=== PATIENT | male | born 1995 | race Caucasian/White ===

== ENCOUNTER 2019-11-16 14:19 | Emergency (ER) | payer SELFPAY ==
[2019-11-16 14:32] VITALS: BP 152/84; PULSE 83; RESP 16; TEMP 36.9; O2SAT 94; BMI 35.7
--- NOTE | 2019-11-16 14:47 | XRR_ITS ---
PROCEDURE INFORMATION: Exam: XR Right Humerus Exam date and time: 11/16/2019 2:48 PM Age: 24 years old Clinical indication: Pain; Upper arm; Right TECHNIQUE: Imaging protocol: XR Right humerus Views: 2 or more views. COMPARISON: No relevant prior studies available. FINDINGS: Bones/joints: Normal. Soft tissues: Normal. XR/[place] [id number] IMPRESSION: No acute findings.
--- NOTE | 2019-11-16 14:47 | XRR_ITS ---
PROCEDURE INFORMATION: Exam: XR Right Shoulder Exam date and time: 11/16/2019 2:48 PM Age: 24 years old Clinical indication: Pain; Shoulder; Right TECHNIQUE: Imaging protocol: XR Right shoulder. Views: 2 or more views. COMPARISON: No relevant prior studies available. FINDINGS: Bones/joints: Negative for acute bony abnormality Soft tissues: Normal. XR/XR shoulder RT min 2V* [id number] IMPRESSION: No acute findings.
--- NOTE | 2019-11-16 14:47 | ED_ITS ---
HPI - Extremity Problem General: Chief complaint: Extremity Injury, Upper Stated complaint: r arm and shouler pain Time Seen by Provider: 11/16/19 14:25 History of Present Illness: HPI Narrative: 24-year-old male presents emergency room with complaint of right arm and shoulder pain. Patient admits to drinking heavily last night states he does drink regularly admits he probably drinks too much. This morning he has numbness in his right arm he denies any neck pain denies any trauma he has a little bit of numbness across the right upper chest. He denies left-sided chest pain denies any difficulty breathing or shortness of breath the numbness extends to the midline and down. However when directly tested he has normal sensation bilaterally. Associated symptoms: Deny chest pain, fever(s) or rash Review of Systems Const: Denies: fever(s), chills, body aches, change in appetite, fatigue or malaise ENMT: Denies: throat pain, ear or mastoid pain, nasal discharge or nasal congestion Card: Denies: chest pain, edema, dyspnea on exertion or orthopnea Resp: Denies: dyspnea, productive cough or non-productive cough GI: Denies: abdominal pain, nausea, vomiting, hematemesis, coffee ground emesis, diarrhea, constipation, bloating, hematochezia or melena : Denies: flank pain, dysuria, urinary frequency or urinary urgency Skin/Breast: Denies: rash or pruritus [facility] ED PFSH: Medical History (Updated 11/16/19 @ 16:18 by Curtis Tavares DO) No significant past medical history Surgical History (Updated 11/16/19 @ 16:18 by Curtis Tavares DO) No significant past surgical history Social History (Updated 11/16/19 @ 16:18 by Curtis Tavares DO) Smoking and tobacco status: current every day smoker cigarettes Alcohol intake: current Alcohol intake frequency: 3 or more drinks per day Physical Exam Const: COMMON NORMALS: no acute distress GENERAL APPEARANCE: cooperative and comfortable ORIENTATION/CONSCIOUSNESS: Yes awake, Yes oriented to person, Yes oriented to place and Yes oriented to time HENMT: COMMON NORMALS: normocephalic, atraumatic, hearing grossly normal bilaterally, external ears normal, EAC's normal, TM's normal bilaterally, Normal nasal mucous membranes and turbinates present, moist oral mucous membranes and oropharynx normal HEAD & SCALP: normocephalic and atraumatic NOSE: Normal nasal mucous membranes and turbinates present EXTERNAL EAR: Yes external ears normal EXTERNAL AUDITORY CANAL: EAC's normal TYMPANIC MEMBRANE: TM's normal bilaterally Eye: COMMON NORMALS: Equal, round and reactive pupils present, EOMs intact bilaterally, conjunctivae normal and no scleral icterus CONJUNCTIVA: Yes conjunctivae normal PUPIL: Yes Equal, round and reactive pupils present Neck/C-Spine: COMMON NORMALS: full ROM, no lymphadenopathy, supple and no JVD Lymph: LYMPHATIC: no lymphadenopathy noted and no lymphedema noted Resp: COMMON NORMALS: normal respiratory effort, No retractions, No use of accessory muscles and clear to auscultation bilaterally AUSCULTATION: clear to auscultation bilaterally Cardio: COMMON NORMALS: no JVD, regular rate, regular rhythm and No murmurs present (Cardio) RATE: regular rate RHYTHM: regular rhythm GI: COMMON NORMALS: Soft to palpation and No hepatosplenomegaly present AUSCULTATION: Yes normoactive bowel sounds PALPATION: Yes Soft to palpation, No Tenderness to palpation present (GI), No Guarding due to palpation present (GI) and Yes No hepatosplenomegaly present Extremity: COMMON NORMALS: normal to inspection, capillary refill normal, no clubbing, cyanosis or edema, no calf tenderness and no pedal edema Neuro: SENSORIUM/ORIENTATION: Yes oriented to person, Yes oriented to place and Yes oriented to time Skin: COMMON NORMALS: no rashes or lesions noted GENERAL SKIN EXAM: no rashes or lesions noted Course Vital Signs: Vital signs: Vital Signs Temperature 98.5 F 11/16/19 14:32 Pulse Rate 79 11/16/19 16:12 Respiratory Rate 18 11/16/19 16:12 Blood Pressure 152/84 11/16/19 14:32 Pulse Oximetry 94 11/16/19 16:12 MDM - Extremity (Nontraumatic) MDM Narrative: Medical decision making narrative: Discussed findings with the patient. He has no evidence of stroke at this point is neurologic symptoms essentially normal Test him he has normal sensation to sharp and dull touch in the upper extremities and across bilaterally in the chest wall. Some of this may be related to his heavy alcohol intake was getting a peripheral neuropathy does have some elevated liver enzymes his gait and manual dexterity are otherwise normal he has no other side will focal neurologic deficit we will go ahead and discharge him home him follow-up with primary care if this persists he may need to see neurology. I did advise him against continued heavy drinking also cautioned him on the use of Tylenol since he is elevated liver enzymes and drinks heavily. Return if has further problems. Lab Data: Labs: Lab Results 11/16/19 11/16/19 Range/Units 15:13 15:13 WBC 9.4 (4.0-10.0) 10^3/ uL RBC 5.33 H (4.1-5.3) 10^6/u L Hgb 16.6 (11.7-16.6) g/dL Hct 47.9 (42.0-52.0) % MCV 89.9 (80-94) fL MCH 31.1 (28.0-34.0) pg MCHC 34.7 (30.0-36.0) g/dL RDW 13.0 (12.1-15.1) % Plt Count 316 (130-400) 10^3/c mm MPV 9.7 (7.4-10.4) fL Neut % (Auto) 64.9 % Lymph % (Auto) 21.5 % Christian % (Auto) 7.9 % Eos % (Auto) 4.3 % Baso % (Auto) 1.0 % Neut # (Auto) 6.10 (1.8-7.7) 10^3/u L Lymph # (Auto) 2.0 (0.8-4.8) 10^3/u L Christian # (Auto) 0.7 (0.2-0.9) 10^3/u L Eos # (Auto) 0.4 (0.0-0.8) 10^3/u L Baso # (Auto) 0.1 (0.0-0.1) 10^3/u L Nucleated RBC % (a uto) 0 % Nucleated RBCs # 0.0 /100WBC Sodium 140 (136-145) mmol/L Potassium 3.8 (3.5-5.1) mmol/L Chloride 101 (98-107) mmol/L Carbon Dioxide 27 (22-29) mmol/L Anion Gap 15.8 (5-19) BUN 10 (6-20) mg/dL Creatinine 0.8 (0.7-1.2) mg/dL GFR Calculation 117.8 (90-130) mL/min Glucose 110 (65-115) mg/dL Calculated Osmolal ity 287 (285-295) mOsm/k g Calcium 10.2 (8.5-10.5) mg/dL Magnesium 2.0 (1.7-2.3) mg/dL Total Bilirubin 0.5 (0.15-1.2) mg/dL AST 47 H (0-40) U/L ALT 97 H (0-41) U/L Alkaline Phosphata se 100 (40-130) IU/L Total Protein 7.8 (6.6-8.7) g/dL Albumin 4.7 (3.5-5.2) g/dL Globulin 3.1 (1.3-4.6) g/dL Discharge Plan Discharge Patient Disposition: Home Clinical Impression: Neuropathy, Excessive drinking alcohol, Elevated liver enzymes Condition: Stable Prescriptions: No Action No Known Home Medications RF: 0 Discharge Orders: Discharge Order (Routine); Ordered 11/16/19 Ordered By: Curtis Tavares Discharge Diet: Usual diet Discharge Activity: Increase activity as tolerated Activity Restrictions/Additional Instructions: Avoid alcohol and Tylenol use. Follow-up with your primary care doctor if this persists you may need to see neurology. Avoid alcohol use. Discharge Date/Time: 11/16/19 16:13 Coding Level of Care Code ED [employer] for Quan Herrera NIH stroke score NIHSS Level Of Consciousness - 1a: 0 Level Of Consciousness Questions - 1b: Both Correct Level Of Consciousness Commands - 1c: Both Correct Best Gaze - 2: Normal Visual Lechuga - 3: No Visual Loss Facial Palsy - 4: Normal Motor Arm Right - 5: No Drift Motor Arm Left - 5: No Drift Motor Leg Right - 6: No Drift Motor Leg Left - 6: No Drift Limb Ataxia - 7: Absent Sensory - 8: Normal Best Language - 9: No Aphasia Dysarthia - 10: Normal Extinction And Inattention - 11: 0 Score Total Score: 0
--- NOTE | 2019-11-16 14:51 | ECG_ITS ---
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 Measurements Intervals [place] Rate: 67 P: 30 NH: 159 QRS: 26 QRSD: 105 T: 23 QT: 369 QTc: 392 Interpretive Statements SINUS RHYTHM Compared to ECG 06/14/2016 20:16:44 Sinus bradycardia no longer present Electronically Signed On 11-16-2019 18:12:21 CDT by Lynnette Simon M.D. [email or web address].[facility] Ropsmississippi baptist medical centerITOG, Inc.[facility].[employer]/store/OM/[id number]
--- NOTE | 2019-11-16 14:51 | XRR_ITS ---
PROCEDURE INFORMATION: Exam: XR Chest, 1 View Exam date and time: 11/16/2019 2:52 PM Age: 24 years old Clinical indication: Cough and dyspnea; Additional info: Dyspnea/cough TECHNIQUE: Imaging protocol: XR of the chest Views: 1 view. COMPARISON: CR Chest 2 views* [id number] 06/14/2016 8:24 PM FINDINGS: Lungs: Unremarkable. No consolidation. Pleural space: Unremarkable. No pleural effusion. No pneumothorax. Heart/Mediastinum: Unremarkable. No cardiomegaly. Bones/joints: Unremarkable. XR/XR chest 1V portable [id number] IMPRESSION: No acute findings.
[2019-11-16 15:22] LABS: Basophils # 0.1 10^3/uL (0.0-0.1); Eosinophils # 0.4 10^3/uL (0.0-0.8); Eosinophils % 4.3 %; Hematocrit 47.9 % (42.0-52.0); Hemoglobin 16.6 g/dL (11.7-16.6); Lymphocytes % 21.5 %; Mean Corpuscular HGB Conc 34.7 g/dL (30.0-36.0); Mean Corpuscular Hemoglobin 31.1 pg (28.0-34.0); Mean Corpuscular Volume 89.9 fL (80-94); Mean Platelet Volume 9.7 fL (7.4-10.4); Monocytes # 0.7 10^3/uL (0.2-0.9); Monocytes % 7.9 %; Neutrophils % 64.9 %; Nucleated Red Blood Cells % 0 %; Platelet Count 316 10^3/cmm (130-400); Red Blood Count 5.33 10^6/uL (4.1-5.3); White Blood Count 9.4 10^3/uL (4.0-10.0)
[2019-11-16 15:44] LABS: Alanine Aminotransferase 97 U/L (0-41); Albumin Level 4.7 g/dL (3.5-5.2); Alkaline Phosphatase 100 IU/L (40-130); Anion Gap 15.8 (5-19); Aspartate Amino Transferase 47 U/L (0-40); Blood Urea Nitrogen 10 mg/dL (6-20); Calcium 10.2 mg/dL (8.5-10.5); Carbon Dioxide 27 mmol/L (22-29); Chloride 101 mmol/L (98-107); Globulin 3.1 g/dL (1.3-4.6); Glomerular Filtration Rate 117.8 mL/min (90-130); Glucose 110 mg/dL (65-115); Osmolality Calculated 287 mOsm/kg (285-295); Potassium 3.8 mmol/L (3.5-5.1); Sodium 140 mmol/L (136-145); Total Bilirubin 0.5 mg/dL (0.15-1.2); Total Protein 7.8 g/dL (6.6-8.7)
[2019-11-16 16:12] VITALS: PULSE 79; RESP 18; O2SAT 94
--- NOTE | 2019-11-17 14:25 | DCPLANNER ---
manager personnel selection had message to speak with patient about getting established with a primary care physician. manager personnel selection called [phone], no voicemail box set up. Case manger unable to speak with patient at this time and unable to leave a voicemail, no voicemail box set up.
== END 2019-11-16 16:13 | disposition home or self-care (01) ==
PROVIDERS: Emergency Provider Family Medicine
DX: G62.9 Polyneuropathy, unspecified (principal); F10.10 Alcohol abuse, uncomplicated; R74.8 Abnormal levels of other serum enzymes; F17.210 Nicotine dependence, cigarettes, uncomplicated
CPT/HCPCS: 12345; 36415; 71045; 73030; 73060; 80053; 83735; 85025; 93005; 99282; 99283

== ENCOUNTER 2020-09-01 01:25 | Emergency (ER) | payer SELFPAY ==
[2020-09-01 01:29] VITALS: BP 141/83; PULSE 68; RESP 14; TEMP 36.7; O2SAT 98; BMI 32.4
--- NOTE | 2020-09-01 01:37 | CTR_ITS ---
PROCEDURE INFORMATION: Exam: CT Head Without Contrast Exam date and time: 09/01/2020 1:39 AM Age: 25 years old Clinical indication: Dizziness; Additional info: Dizzy TECHNIQUE: Imaging protocol: Computed tomography of the head without contrast. Radiation optimization: All CT scans at this facility use at least one of these dose optimization techniques: automated exposure control; mA and/or kV adjustment per patient size (includes targeted exams where dose is matched to clinical indication); or iterative reconstruction. COMPARISON: No relevant prior studies available. RADIATION DOSE METRICS: Total DLP (mGy-cm): 833.98 FINDINGS: Brain: No hemorrhage. No significant white matter disease. No edema. Cerebral ventricles: No hydrocephalus Paranasal sinuses: Visualized sinuses are unremarkable. No fluid levels. Mastoid air cells: No significant mastoid effusion. Bones/joints: No acute fracture. Soft tissues: Unremarkable. CT/CT head wo con* [id number] IMPRESSION: No acute intracranial abnormality. Radiation Dose CTDIVOL = (mGy): DLP = 833.98 (mGy-cm)
--- NOTE | 2020-09-01 01:38 | ECG_ITS ---
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 Measurements Intervals [place] Rate: 59 P: 48 [place]: 150 QRS: 63 QRSD: 105 T: 59 QT: 399 QTc: 396 Interpretive Statements SINUS BRADYCARDIA Compared to ECG 11/16/2019 15:29:34 Sinus rhythm no longer present Electronically Signed On 09-02-2020 18:54:39 CDT by Sven Brand M.D. [email or web address] Gamestem[facility] community hospitalGladitood/store/[id number]
--- NOTE | 2020-09-01 01:49 | W.ED.DIZZY ---
HPI - Dizziness General: Chief Complaint: Dizziness Stated Complaint: dizziness, tingling in face and spine Time Seen by Provider: 09/01/20 01:31 Source: patient Mode of arrival: ambulatory Limitations: no limitations History of Present Illness: HPI Narrative: 25-year-old male states that tonight he started having a slight headache and is feeling very anxious and started having paresthesias in his legs and arms. States that they just further increased his anxiety and felt nauseous. Denies any chest pain. Denies any fever. Denies any worsening improving factors. States symptoms have resolved slightly. Associated symptoms: Denies chest pain, chills, headache(s), nausea or vomiting Associated neuro symptoms: Reports numbness in extremities Review of Systems Const: Denies: fever(s), chills, body aches or change in appetite Eyes: Denies: blurry vision or eye discomfort ENMT: Reports: dental pain; Denies: throat pain Card: Denies: chest pain Resp: Denies: dyspnea GI: Denies: abdominal pain, nausea, vomiting or diarrhea : Denies: dysuria Musc: Denies: neck pain or back pain Skin/Breast: Denies: rash Neuro: Reports: numbness in extremities; Denies: headache(s) Psych: Denies: depression Shailesh/Lymph: Denies: easy bruising All/Imm: Denies: urticaria PFS ED PFSH: Medical History (Updated 09/01/20 @ 02:59 by Vickie Silva MD) No significant past medical history Surgical History (Updated 11/16/19 @ 16:18 by Curtis Tavares DO) No significant past surgical history Social History (Updated 11/16/19 @ 16:18 by Curtis Tavares DO) Smoking and tobacco status: current every day smoker cigarettes Alcohol intake: current Alcohol intake frequency: 3 or more drinks per day Physical Exam Const: COMMON NORMALS: no acute distress, patient oriented x3 and healthy appearing HENMT: COMMON NORMALS: normocephalic and atraumatic HEAD & SCALP: normocephalic and atraumatic OTHER: very poor dentition tenderness over right lower molar Eye: COMMON NORMALS: Equal, round and reactive pupils present and EOMs intact bilaterally PUPIL: Yes Equal, round and reactive pupils present Neck/C-Spine: COMMON NORMALS: full ROM and supple Chest: COMMONS NORMALS: normal inspection of the chest and normal palpation of entire chest wall Resp: COMMON NORMALS: normal respiratory effort, No retractions, No use of accessory muscles and clear to auscultation bilaterally AUSCULTATION: clear to auscultation bilaterally Cardio: COMMON NORMALS: regular rate, regular rhythm and No murmurs present (Cardio) RATE: regular rate RHYTHM: regular rhythm GI: COMMON NORMALS: Normal to inspection, nondistended, normoactive bowel sounds present, Soft to palpation, non-tender and no masses PALPATION: Yes Soft to palpation Extremity: COMMON NORMALS: normal to inspection and full ROM Neuro: COMMON NORMALS: patient oriented x3, moves all extremities and no focal motor deficits Psych: COMMON NORMALS: mental status grossly normal, Normal thought process present and cooperative THOUGHT PROCESS: Normal thought process present Skin: COMMON NORMALS: no rashes or lesions noted and no wounds GENERAL SKIN EXAM: no rashes or lesions noted Course Vital Signs: Vital signs: Vital Signs Temperature 98.0 F 09/01/20 01:29 Pulse Rate 62 09/01/20 02:52 Respiratory Rate 16 09/01/20 02:52 Blood Pressure 128/81 09/01/20 02:52 Pulse Oximetry 94 09/01/20 02:52 MDM - Dizziness MDM Narrative: Medical decision making narrative: Kam presents here with paresthesias likely from anxiety and methamphetamine abuse. Patient's blood work and head CT here are all normal. He has no signs of stroke. He feels improved after Ativan and is stable for discharge. He is to follow-up with PCP and return if worsening. Lab Data: Labs: Lab Results 09/01/20 09/01/20 09/01/20 Range/Units 01:45 01:45 02:10 WBC 9.8 (4.0-10.0) 10^3/ uL RBC 5.85 H (4.1-5.3) 10^6/u L Hgb 17.8 H (11.7-16.6) g/dL Hct 51.9 (42.0-52.0) % MCV 88.7 (80-94) fL MCH 30.4 (28.0-34.0) pg MCHC 34.3 (30.0-36.0) g/dL RDW 12.9 (12.1-15.1) % Plt Count 352 (130-400) 10^3/c mm MPV 9.7 (7.4-10.4) fL Neut % (Auto) 58.8 % Lymph % (Auto) 27.1 % Mcnairy % (Auto) 10.1 % Eos % (Auto) 2.4 % Baso % (Auto) 1.3 % Neut # (Auto) 5.75 (1.8-7.7) 10^3/u L Lymph # (Auto) 2.7 (0.8-4.8) 10^3/u L Mcnairy # (Auto) 1.0 H (0.2-0.9) 10^3/u L Eos # (Auto) 0.2 (0.0-0.8) 10^3/u L Baso # (Auto) 0.1 (0.0-0.1) 10^3/u L Nucleated RBC % (a uto) 0 % Nucleated RBCs # 0.0 /100WBC Sodium 135 L (136-145) mmol/L Potassium 4.0 (3.5-5.1) mmol/L Chloride 97 L (98-107) mmol/L Carbon Dioxide 24 (22-29) mmol/L Anion Gap 18.0 (5-19) BUN 13 (6-20) mg/dL Creatinine 0.7 (0.7-1.2) mg/dL GFR Calculation 136.3 H (90-130) mL/min Glucose 85 (65-115) mg/dL Calculated Osmolal ity 279 L (285-295) mOsm/k g Calcium 9.6 (8.5-10.5) mg/dL Total Bilirubin 1.0 (0.15-1.2) mg/dL AST 51 H (0-40) U/L ALT 84 H (0-41) U/L Alkaline Phosphata se 94 (40-130) IU/L Total Protein 7.8 (6.6-8.7) g/dL Albumin 4.8 (3.5-5.2) g/dL Globulin 3.0 (1.3-4.6) g/dL Urine Opiates Scre en Negative (Negative) ng/mL Ur Barbiturates Sc reen Negative (Negative) ng/mL Ur Phencyclidine S crn Negative (Negative) ng/mL Ur Amphetamines Sc reen Positive H (Negative) ng/mL U Benzodiazepines Scrn Negative (Negative) ng/mL Urine Cocaine Scre en Negative (Negative) ng/mL U Marijuana (THC) Screen Positive H (Negative) ng/mL Imaging Data^: CT Head: Attestation: I personally reviewed and interpreted this imaging study as follows: Radiologist's impression: [facility] [address] [place] [address] CT Scan Report Signed Patient: Kam Chatman Unit #: [id number] : 1995 Age/Sex: 25 / M ADM Date: 09/01/20 Loc: ER Room/Bed: Attending Dr: Ordering Provider/Ordering MD: Vickie Silva MD Date of Service: 09/01/20 Procedure(s): CT head wo con* [id number] Accession Number(s): [id number] Report Number: [id number] PROCEDURE INFORMATION: Exam: CT Head Without Contrast Exam date and time: 09/01/2020 1:39 AM Age: 25 years old Clinical indication: Dizziness; Additional info: Dizzy TECHNIQUE: Imaging protocol: Computed tomography of the head without contrast. Radiation optimization: All CT scans at this facility use at least one of these dose optimization techniques: automated exposure control; mA and/or kV adjustment per patient size (includes targeted exams where dose is matched to clinical indication); or iterative reconstruction. COMPARISON: No relevant prior studies available. RADIATION DOSE METRICS: Total DLP (mGy-cm): 833.98 FINDINGS: Brain: No hemorrhage. No significant white matter disease. No edema. Cerebral ventricles: No hydrocephalus Paranasal sinuses: Visualized sinuses are unremarkable. No fluid levels. Mastoid air cells: No significant mastoid effusion. Bones/joints: No acute fracture. Soft tissues: Unremarkable. CT/CT head wo con* [id number] IMPRESSION: No acute intracranial abnormality. EKG Data^: EKG 1: Attestation: I personally reviewed and interpreted this EKG as follows: EKG interpretation date: 09/01/20 EKG interpretation time: 02:09 Interpretation: sinus kiran hr [address] or t wave abnormalities qrs 105 qtc 397 Discharge Plan Discharge Patient Disposition: Home Clinical Impression: Paresthesia Condition: Stable Prescriptions: No Action No Known Home Medications RF: 0 Discharge Orders: Discharge ED (Routine); Ordered 09/01/20 Ordered By: Vickie Silva Discharge Diet: Advance as tolerated Discharge Activity: Resume usual activity Patient Instructions: Paresthesia (ED) Coding Level of Care Code ED [employer] for [employer]an Fwd Exam Comprehensive
[2020-09-01 01:52] LABS: Basophils # 0.1 10^3/uL (0.0-0.1); Basophils % 1.3 %; Eosinophils # 0.2 10^3/uL (0.0-0.8); Eosinophils % 2.4 %; Hematocrit 51.9 % (42.0-52.0); Hemoglobin 17.8 g/dL (11.7-16.6); Lymphocytes # 2.7 10^3/uL (0.8-4.8); Lymphocytes % 27.1 %; Mean Corpuscular HGB Conc 34.3 g/dL (30.0-36.0); Mean Corpuscular Hemoglobin 30.4 pg (28.0-34.0); Mean Corpuscular Volume 88.7 fL (80-94); Mean Platelet Volume 9.7 fL (7.4-10.4); Monocytes % 10.1 %; Neutrophils # 5.75 10^3/uL (1.8-7.7); Neutrophils % 58.8 %; Nucleated Red Blood Cells % 0 %; Platelet Count 352 10^3/cmm (130-400); Red Blood Count 5.85 10^6/uL (4.1-5.3); Red Cell Distribution Width 12.9 % (12.1-15.1); White Blood Count 9.8 10^3/uL (4.0-10.0)
[2020-09-01 02:08] LABS: Alanine Aminotransferase 84 U/L (0-41); Albumin Level 4.8 g/dL (3.5-5.2); Alkaline Phosphatase 94 IU/L (40-130); Aspartate Amino Transferase 51 U/L (0-40); Blood Urea Nitrogen 13 mg/dL (6-20); Calcium 9.6 mg/dL (8.5-10.5); Carbon Dioxide 24 mmol/L (22-29); Chloride 97 mmol/L (98-107); Glomerular Filtration Rate 136.3 mL/min (90-130); Glucose 85 mg/dL (65-115); Osmolality Calculated 279 mOsm/kg (285-295); Sodium 135 mmol/L (136-145); Total Protein 7.8 g/dL (6.6-8.7)
[2020-09-01] MEDS: LORazepam 2 mg/mL INJ 1 mL 1 MG IVP (02:12)
[2020-09-01 02:15] VITALS: BP 121/72; PULSE 64; RESP 18; O2SAT 96
[2020-09-01 02:31] LABS: Amphetamines Screen Urine Positive (Negative); Barbiturates Screen Urine Negative (Negative); Benzodiazepines Screen Urine Negative (Negative); Cocaine Screen Urine Negative (Negative); Opiate Screen Urine Negative (Negative); PCP Screen Urine Negative (Negative); THC Screen Urine Positive (Negative)
[2020-09-01 02:52] VITALS: BP 128/81; PULSE 62; RESP 16; O2SAT 94
[2020-09-01 03:19] VITALS: BP 125/78; PULSE 61; RESP 14; O2SAT 98
== END 2020-09-01 03:20 | disposition home or self-care (01) ==
PROVIDERS: Emergency Provider Emergency Medicine
DX: R20.2 Paresthesia of skin (principal); F17.210 Nicotine dependence, cigarettes, uncomplicated
CPT/HCPCS: 70450; 80053; 80306; 85025; 93005; 96374; 99283; J2060

== ENCOUNTER 2020-10-20 10:19 | Emergency (ER) | payer SELFPAY ==
[2020-10-20 10:49] VITALS: BP 117/66; PULSE 85; RESP 18; TEMP 37.4; O2SAT 94; BMI 29.0
[2020-10-20 11:12] VITALS: BP 120/66; PULSE 69; RESP 15; O2SAT 96
--- NOTE | 2020-10-20 11:24 | CTR_ITS ---
PROCEDURE INFORMATION: Exam: CT Abdomen And Pelvis With Contrast Exam date and time: 10/20/2020 11:24 AM Age: 25 years old Clinical indication: Other: Diarrhea; Abdominal pain; Localized; Lower; Additional info: Abd pain TECHNIQUE: Imaging protocol: Computed tomography of the abdomen and pelvis with contrast. Radiation optimization: All CT scans at this facility use at least one of these dose optimization techniques: automated exposure control; mA and/or kV adjustment per patient size (includes targeted exams where dose is matched to clinical indication); or iterative reconstruction. Contrast material: OMNI 300; Contrast volume: 95 ml; Contrast route: INTRAVENOUS (IV); COMPARISON: None RADIATION DOSE METRICS: Total DLP (mGy-cm): 1578.39 FINDINGS: Lungs: Poorly defined 14 by 10 by 12 mm and 14 by 13 by 9 mm nodular lesions of ground-glass attenuation in the right lower lobe. Recommend CT Chest at 3-6 months. Subsequent management should be based on the most suspicious nodule(s). (Reference: Kvng). Liver: Multiple poorly characterized nodular hypodense lesions in the periphery of the right hepatic lobe, which do not fulfill CT criteria for simple cysts. MRI can be performed for improved characterization if clinically indicated. Gallbladder and bile ducts: Unremarkable gallbladder. No biliary ductal dilatation. Pancreas: No pancreatic mass or ductal dilatation. Spleen: Spleen upper limits of normal size. Adrenal glands: Unremarkable adrenals. Kidneys and ureters: Normal renal morphology. No hydronephrosis. Stomach and bowel: Colonic wall thickening, in a pattern of colitis. Mild wall thickening in the nondistended stomach. Mild small bowel dilatation without a focal transition zone. Diverticula, without pericolonic inflammation. Appendix: No acute appendicitis. Intraperitoneal space: No significant free fluid. Vasculature: Normal caliber of the abdominal aorta. Lymph nodes: Subcentimeter lymph nodes. Urinary bladder: Wall thickening in the nondistended bladder. Reproductive: Unremarkable as visualized. Bones/joints: L5 spondylolysis. Schmorl's nodes, vertebral endplate irregularity, and marginal osteophytes. CT/CT abdomen pelvis w con* [id number] IMPRESSION: 1. Colonic wall thickening, in a pattern of colitis. 2. Multiple poorly characterized nodular hypodense lesions in the periphery of the right hepatic lobe, which do not fulfill CT criteria for simple cysts. 3. Poorly defined 14 by 10 by 12 mm and 14 by 13 by 9 mm nodular lesions of ground-glass attenuation in the right lower lobe. 4. Additional findings as described above. Radiation Dose CTDIVOL = (mGy): DLP = 1578.39 (mGy-cm)
--- NOTE | 2020-10-20 11:24 | ED_ITS ---
HPI - Abdominal Pain General: Chief Complaint: Abdominal Pain Stated Complaint: ABDOMEN PAIN Time Seen by Provider: 10/20/20 10:56 History of Present Illness: HPI narrative: 25-year-old male presents emergency room with complaints of lower abdominal pain intermittent has had some loose stools recently and one episode of vomiting he denies any fever no cough or shortness of breath sore throat no congestion no myalgias. Is not had like any episodes like this in the past. Denies any medication melena hematemesis coffee-ground emesis MD elicited complaint: abdominal pain Onset (ago): hour(s) Pain Consistency: constant Location: Suprapubic Severity: moderate Quality: cramping Radiation: none Migration to: no migration Exacerbating factors: nothing Relieving factors: nothing Associated Symptoms: Reports bloating and change in bowel habits; Denies anorexia, belching, change in stool character, chills, coffee ground emesis, constipation, GI cramping, diarrhea, dyspepsia, dysuria, excessive flatus, fever(s), heartburn, hematochezia, hematuria, hematemesis, fecal incontinence, loose stools, melena, nausea, poor appetite, syncope and vomiting Review of Systems Const: Denies: fever(s) or chills ENMT: Denies: throat pain, ear or mastoid pain, nasal discharge or nasal congestion Card: Denies: syncope Resp: Denies: dyspnea, productive cough or non-productive cough GI: Reports: bloating and change in bowel habits; Denies: nausea, vomiting, hematemesis, coffee ground emesis, heartburn, diarrhea, constipation, GI cramping, belching, excessive flatus, fecal incontinence, change in stool character, hematochezia or melena : Denies: dysuria or hematuria Skin/Breast: Denies: rash or pruritus PFSH ED PFSH: Medical History No significant past medical history Surgical History No significant past surgical history Social History Smoking and tobacco status: current every day smoker cigarettes Alcohol intake: current Alcohol intake frequency: 3 or more drinks per day Substance/Drug Use: current Substance/Drug use type: Marijuana Physical Exam Const: COMMON NORMALS: no acute distress GENERAL APPEARANCE: cooperative and comfortable ORIENTATION/CONSCIOUSNESS: Yes awake, Yes oriented to person, Yes oriented to place and Yes oriented to time HENMT: COMMON NORMALS: normocephalic, atraumatic, hearing grossly normal bilaterally, external ears normal, EAC's normal, TM's normal bilaterally, Normal nasal mucous membranes and turbinates present, moist oral mucous membranes and oropharynx normal HEAD & SCALP: normocephalic and atraumatic NOSE: Normal nasal mucous membranes and turbinates present EXTERNAL EAR: Yes external ears normal EXTERNAL AUDITORY CANAL: EAC's normal TYMPANIC MEMBRANE: TM's normal bilaterally Eye: COMMON NORMALS: Equal, round and reactive pupils present, EOMs intact bilaterally, conjunctivae normal and no scleral icterus CONJUNCTIVA: Yes conjunctivae normal PUPIL: Yes Equal, round and reactive pupils present Neck/C-Spine: COMMON NORMALS: full ROM, no lymphadenopathy, supple and no JVD Lymph: LYMPHATIC: no lymphadenopathy noted and no lymphedema noted Resp: COMMON NORMALS: normal respiratory effort, No retractions, No use of accessory muscles and clear to auscultation bilaterally AUSCULTATION: clear to auscultation bilaterally Cardio: COMMON NORMALS: no JVD, regular rate, regular rhythm and No murmurs present (Cardio) RATE: regular rate RHYTHM: regular rhythm GI: COMMON NORMALS: No hepatosplenomegaly present AUSCULTATION: Yes normoactive bowel sounds PALPATION: Yes Tenderness to palpation present (GI) (suprapubic), No Guarding due to palpation present (GI) and Yes No hepatospl enomegaly present Extremity: COMMON NORMALS: normal to inspection, capillary refill normal, no clubbing, cyanosis or edema, no calf tenderness and no pedal edema Neuro: SENSORIUM/ORIENTATION: Yes oriented to person, Yes oriented to place and Yes oriented to time Skin: COMMON NORMALS: no rashes or lesions noted GENERAL SKIN EXAM: no rashes or lesions noted Course Vital Signs: Vital signs: Vital Signs Temperature 98.7 F 10/20/20 12:52 Pulse Rate 64 10/20/20 12:57 Respiratory Rate 16 10/20/20 12:57 Blood Pressure 120/78 10/20/20 12:57 Pulse Oximetry 96 10/20/20 12:57 MDM - Abdominal Pain MDM Narrative: Medical decision making narrative: Patient doing well at this point. Encouraged him dose clear liquid diet the next few days start on the Cipro and Flagyl advance as tolerated Zofran as needed if is worsening or change return Lab Data: Labs: Lab Results 10/20/20 10/20/20 10/20/20 Range/Units 11:25 11:25 11:48 WBC 11.4 H (4.0-10.0) 10^3/ uL RBC 5.48 H (4.1-5.3) 10^6/u L Hgb 16.7 H (11.7-16.6) g/dL Hct 48.1 (42.0-52.0) % MCV 87.8 (80-94) fL MCH 30.5 (28.0-34.0) pg MCHC 34.7 (30.0-36.0) g/dL RDW 13.1 (12.1-15.1) % Plt Count 345 (130-400) 10^3/c mm MPV 9.7 (7.4-10.4) fL Neut % (Auto) 70.7 % Lymph % (Auto) 13.3 % Bent % (Auto) 8.8 % Eos % (Auto) 6.0 % Baso % (Auto) 0.8 % Neut # (Auto) 8.05 H (1.8-7.7) 10^3/u L Lymph # (Auto) 1.5 (0.8-4.8) 10^3/u L Bent # (Auto) 1.0 H (0.2-0.9) 10^3/u L Eos # (Auto) 0.7 (0.0-0.8) 10^3/u L Baso # (Auto) 0.1 (0.0-0.1) 10^3/u L Nucleated RBC % (a uto) 0 % Nucleated RBCs # 0.0 /100WBC Sodium 135 L (136-145) mmol/L Potassium 3.8 (3.5-5.1) mmol/L Chloride 98 (98-107) mmol/L Carbon Dioxide 23 (22-29) mmol/L Anion Gap 17.8 (5-19) BUN 10 (6-20) mg/dL Creatinine 0.7 (0.7-1.2) mg/dL GFR Calculation 136.3 H (90-130) mL/min Glucose 93 (65-115) mg/dL Calculated Osmolal ity 279 L (285-295) mOsm/k g Calcium 9.4 (8.5-10.5) mg/dL Total Bilirubin 0.5 (0.15-1.2) mg/dL AST 43 H (0-40) U/L ALT 92 H (0-41) U/L Alkaline Phosphata se 86 (40-130) IU/L Total Protein 7.5 (6.6-8.7) g/dL Albumin 4.3 (3.5-5.2) g/dL Globulin 3.2 (1.3-4.6) g/dL Lipase 14 (13-60) U/L Urine Color Yellow (Yellow) Urine Appearance Clear (CLEAR) Urine pH 5 (5-7) Ur Specific Gravit y 1.015 (1.005-1.030) Urine Protein Neg (Negative) Urine Glucose (UA) Norm (Normal) Urine Ketones Negative (Negative) Urine Blood Neg (Negative) Urine Nitrate Negative (Negative) Urine Bilirubin 1+ H (Negative) Urine Urobilinogen Norm (Negative) mg/dL Ur Leukocyte Chichi ase Negative (Negative) Discharge Plan Discharge Patient Disposition: Home Clinical Impression: Colitis Condition: Stable Prescriptions: New Cipro 500 mg tablet 500 mg PO BID Qty: 14 RF: 0 metronidazole 500 mg tablet 500 mg PO BID 7 Days Qty: 14 RF: 0 Zofran 4 mg tablet 4 mg PO Q6H PRN (Reason: nausea and vomiting) Qty: 20 RF: 0 Discharge Orders: Discharge ED (Routine); Ordered 10/20/20 Ordered By: Curtis Tavares Discharge Diet: Clear Liquid Discharge Activity: Increase activity as tolerated Patient Instructions: Opioid Safety Activity Restrictions/Additional Instructions: If not improving or worsens return to the emergency room. Clear liquid diet for the next 24 to 48 hours and advance as tolerated. Coding Level of Care Code ED Lobby Attendant for Quan Fwbel Exam Comprehensive
[2020-10-20 11:37] LABS: Basophils # 0.1 10^3/uL (0.0-0.1); Basophils % 0.8 %; Eosinophils # 0.7 10^3/uL (0.0-0.8); Hematocrit 48.1 % (42.0-52.0); Hemoglobin 16.7 g/dL (11.7-16.6); Lymphocytes # 1.5 10^3/uL (0.8-4.8); Lymphocytes % 13.3 %; Mean Corpuscular HGB Conc 34.7 g/dL (30.0-36.0); Mean Corpuscular Hemoglobin 30.5 pg (28.0-34.0); Mean Corpuscular Volume 87.8 fL (80-94); Mean Platelet Volume 9.7 fL (7.4-10.4); Monocytes % 8.8 %; Neutrophils # 8.05 10^3/uL (1.8-7.7); Neutrophils % 70.7 %; Nucleated Red Blood Cells % 0 %; Platelet Count 345 10^3/cmm (130-400); Red Blood Count 5.48 10^6/uL (4.1-5.3); Red Cell Distribution Width 13.1 % (12.1-15.1); White Blood Count 11.4 10^3/uL (4.0-10.0)
[2020-10-20 11:55] VITALS: BP 119/72; PULSE 70; RESP 18; O2SAT 96
[2020-10-20 12:03] LABS: Alanine Aminotransferase 92 U/L (0-41); Albumin Level 4.3 g/dL (3.5-5.2); Alkaline Phosphatase 86 IU/L (40-130); Anion Gap 17.8 (5-19); Aspartate Amino Transferase 43 U/L (0-40); Blood Urea Nitrogen 10 mg/dL (6-20); Calcium 9.4 mg/dL (8.5-10.5); Carbon Dioxide 23 mmol/L (22-29); Chloride 98 mmol/L (98-107); Globulin 3.2 g/dL (1.3-4.6); Glomerular Filtration Rate 136.3 mL/min (90-130); Glucose 93 mg/dL (65-115); Lipase 14 U/L (13-60); Osmolality Calculated 279 mOsm/kg (285-295); Potassium 3.8 mmol/L (3.5-5.1); Sodium 135 mmol/L (136-145); Total Bilirubin 0.5 mg/dL (0.15-1.2); Total Protein 7.5 g/dL (6.6-8.7)
[2020-10-20] MEDS: iohexol 300 mg/mL 100 mL Btl IV (12:21)
[2020-10-20 12:50] LABS: Add Urine Microscopic? NO; Charge for UA Resulting for Rev
[2020-10-20 12:52] VITALS: BP 120/66; PULSE 66; RESP 16; TEMP 37.1; O2SAT 96
[2020-10-20 12:57] VITALS: BP 120/78; PULSE 64; RESP 16; O2SAT 96
[2020-10-20 13:14] LABS: Bilirubin Urine 1+ (Negative); Blood Urine Neg (Negative); Glucose Urine UA Norm (Normal); Ketones Urine Negative (Negative); Leukocyte Esterase Urine Negative (Negative); Nitrate Urine Negative (Negative); Protein Urine Neg (Negative); Specific Gravity, Urine 1.015 (1.005-1.030); Urine Appearance Clear (CLEAR); Urine Color Yellow (Yellow); Urobilinogen Urine Norm (Negative); pH Urine 5 (5-7)
--- NOTE | 2020-10-20 13:32 | XR_ITS ---
WS: [id number] Portable AP upright chest, 10/20/2020 Clinical Data: R lower lobe infiltrate on CT Comparison: CT abdomen and pelvis, 10/20/2020 portable chest, 11/16/2019. Findings: No nodules, masses or effusions are seen. The heart is normal. The pulmonary vascularity is not increased. No pneumonia or pneumothorax is seen. The patchy opacities seen on the CT abdomen pel vis scan in the right lung base are not seen on the chest x-ray XR/XR chest 1V portable [id number] Impression: Negative chest.
== END 2020-10-20 14:19 | disposition home or self-care (01) ==
PROVIDERS: Physician Assistant; Emergency Provider Family Medicine
DX: K52.9 Noninfective gastroenteritis and colitis, unspecified (principal); F17.210 Nicotine dependence, cigarettes, uncomplicated
CPT/HCPCS: 71045; 74177; 80053; 81003; 83690; 85025; 99283; Q9967

== ENCOUNTER → 2020-12-14 11:15 | Outpatient (BNVA) | payer OTHER, SELFPAY | PROVIDERS: Visit Provider Nurse Practitioner Family | DX: Z20.822 Contact with and (suspected) exposure to COVID-19 (principal); J06.9 Acute upper respiratory infection, unspecified | CPT/HCPCS: 87426 ==

== ENCOUNTER 2021-08-21 08:17 | Emergency (ER) | payer SELFPAY ==
[2021-08-21 08:39] VITALS: BP 141/88; PULSE 66; RESP 20; O2SAT 100; BMI 29.9
--- NOTE | 2021-08-21 08:39 | W.ED.BACK ---
HPI - Back Pain/Injury General: Chief Complaint: Back Pain/Injury Stated Complaint: lower back pain Time Seen by Provider: 08/21/21 08:20 Source: patient Mode of arrival: ambulatory Limitations: no limitations History of Present Illness: 26-year-old male presents to the ER today for mid back pain x24 hours. patient reports his pain is severe and rates a 10 out of 10. He reports associated nausea and vomiting with it. Patient reports his pain started yesterday and has continued to worsen. He denies any known injury. Patient denies any urinary symptoms at this time. Patient reports the pain does start in the mid to low left side of his back and radiate around to the front. Patient reports this is a constant sharp pain. Patient reports that is worse with movement. He reports a history of some low back issues such as bulging disks. Patient reports he took some ibuprofen yesterday but has not taken anything today. Patient reports he did not sleep due to pain. Review of Systems General: Reports: 10 or more systems reviewed and unremarkable except in HPI and below PFSH ED PFSH: Medical History No significant past medical history Surgical History No significant past surgical history Social History Smoking and tobacco status: current every day smoker cigarettes Alcohol intake: current Alcohol intake frequency: 3 or more drinks per day Physical Exam Const: COMMON NORMALS: average body habitus, patient oriented x3 and no limitations; apparent distress (in moderate distress) HENMT: COMMON NORMALS: normocephalic, atraumatic, external ears normal and Normal external nose present HEAD & SCALP: normocephalic and atraumatic NOSE: Normal external nose present EXTERNAL EAR: Yes external ears normal MOUTH: Normal oral and palatal mucosa present Eye: COMMON NORMALS: conjunctivae normal CONJUNCTIVA: Yes conjunctivae normal Neck/C-Spine: COMMON NORMALS: full ROM and no lymphadenopathy Chest: COMMONS NORMALS: normal palpation of entire chest wall Resp: COMMON NORMALS: normal respiratory effort, No retractions and clear to auscultation bilaterally AUSCULTATION: clear to auscultation bilaterally Cardio: COMMON NORMALS: regular rate, regular rhythm and No murmurs present (Cardio) RATE: regular rate RHYTHM: regular rhythm GI: COMMON NORMALS: Normal to inspection, nondistended, normoactive bowel sounds present, Soft to palpation and non-tender PALPATION: Yes Soft to palpation : BLADDER/KIDNEY EXAM: Yes CVA tenderness on the left Back/Pelvis: GENERAL BACK: Yes CVA tenderness, No mass and Yes tenderness (tenderness on the L side, paraspinal muscle mid/low back) Extremity: COMMON NORMALS: normal to inspection and full ROM Neuro: COMMON NORMALS: patient oriented x3 Psych: COMMON NORMALS: mental status grossly normal, Normal thought process present and speech normal SPEECH: Yes normal speech THOUGHT PROCESS: Normal thought process present Skin: COMMON NORMALS: no rashes or lesions noted GENERAL SKIN EXAM: no rashes or lesions noted Course ED course: 26-year-old male presents to the ER today with mid to low back pain that started yesterday. He has not take anything for pain today. We will start with some Norflex and Toradol in addition to Zofran for nausea. Will get UA. We will also do labs to rule out pancreatitis versus other issue that could be causing mid back pain. We will hold on CT until we get results of lab work and UA. Muscle spasms of the low back versus kidney stone. Reevaluation(s): Reevaluation #1: pt resting comfortably and says pain has improved some Time: 12:27 Vital Signs: Vital signs: Vital Signs Pulse Rate 66 08/21/21 08:39 Respiratory Rate 20 H 08/21/21 08:39 Blood Pressure 141/88 08/21/21 08:39 Pulse Oximetry 100 08/21/21 08:39 MDM - Back Pain/Injury Medical Decision Making 26-year-old male presents to the ER today for acute mid to low back pain. Patient reports this started yesterday. Is located mostly on the left side. Patient reports it radiates into his abdomen. He denies any urinary issues at this time. Patient has not take anything for pain today. Imaging was done after labs. Labs indicated some mildly elevated liver enzymes otherwise mostly unremarkable. UA was normal so unlikely kidney stone. We did x-ray of the L-spine and T-spine and other than some spondylolysis everything appears normal. Discussed with patient the findings. Would recommend patient follow-up with PCP in 7 to 10 days if no improvement. We will treat with anti-inflammatory, steroid, muscle relaxer. Patient was resting comfortably when I went in to discuss findings with him. Recommend rest and stretching. Follow-up as discussed with the PCP, we will place an order for patient to establish with 1. Return to the ER with new or worsening symptoms. Patient verbalized understanding and is in agreement with the treatment plan. Labs : 08/21/21 09:40 08/21/21 09:40 Radiology Impressions Lumbar Spine X-Ray 08/21/21 11:21 IMPRESSION: Right side spondylolysis L5-S1 Otherwise negative for acute bony abnormality. Thoracic Spine X-Ray 08/21/21 11:21 IMPRESSION: No acute findings. Laboratory Results WBC 9.3 10^3/uL (4.0-10.0) 08/21/21 09:40 RBC 5.48 10^6/uL (4.1-5.3) H 08/21/21 09:40 Hgb 16.9 g/dL (11.7-16.6) H 08/21/21 09:40 Hct 49.4 % (42.0-52.0) 08/21/21 09:40 MCV 90.1 fl (80-94) 08/21/21 09:40 MCH 30.8 pg (28.0-34.0) 08/21/21 09:40 MCHC 34.2 g/dL (30.0-36.0) 08/21/21 09:40 RDW 12.8 % (12.1-15.1) 08/21/21 09:40 Plt Count 351 10^3/cmm (130-400) 08/21/21 09:40 MPV 9.7 fL (7.4-10.4) 08/21/21 09:40 Neut % (Auto) 72.2 % 08/21/21 09:40 Lymph % (Auto) 19.3 % 08/21/21 09:40 [place] % (Auto) 5.9 % 08/21/21 09:40 Eos % (Auto) 1.8 % 08/21/21 09:40 Baso % (Auto) 0.6 % 08/21/21 09:40 Neut # (Auto) 6.73 10^3/uL (1.8-7.7) 08/21/21 09:40 Lymph # (Auto) 1.8 10^3/uL (0.8-4.8) 08/21/21 09:40 [place] # (Auto) 0.6 10^3/uL (0.2-0.9) 08/21/21 09:40 Eos # (Auto) 0.2 10^3/uL (0.0-0.8) 08/21/21 09:40 Baso # (Auto) 0.1 10^3/uL (0.0-0.1) 08/21/21 09:40 Nucleated RBC % (auto) 0 % 08/21/21 09:40 Nucleated RBCs # 0.0 /100WBC 08/21/21 09:40 Sodium 136 mmol/L (136-145) 08/21/21 09:40 Potassium 4.0 mmol/L (3.5-5.1) 08/21/21 09:40 Chloride 101 mmol/L (98-107) 08/21/21 09:40 Carbon Dioxide 23 mmol/L (22-29) 08/21/21 09:40 Anion Gap 16.0 (5-19) 08/21/21 09:40 BUN 12 mg/dL (6-20) 08/21/21 09:40 Creatinine 0.6 mg/dL (0.7-1.2) L 08/21/21 09:40 GFR Calculation 161.6 mL/min (90-130) H 08/21/21 09:40 Glucose 107 mg/dL (65-115) 08/21/21 09:40 Calculated Osmolality 282 mOsm/kg (285-295) L 08/21/21 09:40 Calcium 9.0 mg/dL (8.5-10.5) 08/21/21 09:40 Total Bilirubin 0.7 mg/dL (0.15-1.2) 08/21/21 09:40 AST 55 U/L (0-40) H 08/21/21 09:40 ALT 114 U/L (0-41) H 08/21/21 09:40 Alkaline Phosphatase 77 IU/L (40-130) 08/21/21 09:40 Total Protein 7.5 g/dL (6.6-8.7) 08/21/21 09:40 Albumin 4.7 g/dL (3.5-5.2) 08/21/21 09:40 Globulin 2.8 g/dL (1.3-4.6) 08/21/21 09:40 Lipase 15 U/L (13-60) 08/21/21 09:40 Urine Color Dark yellow (Yellow) 08/21/21 10:30 Urine Appearance Clear (CLEAR) 08/21/21 10:30 Urine pH 6.5 (5-7) 08/21/21 10:30 Ur Specific [place] 1.010 (1.005-1.030) 08/21/21 10:30 Urine Protein Neg (Negative) 08/21/21 10:30 Urine Glucose (UA) Norm (Normal) 08/21/21 10:30 Urine Ketones 1+ (Negative) H 08/21/21 10:30 Urine Blood Neg (Negative) 08/21/21 10:30 Urine Nitrate Negative (Negative) 08/21/21 10:30 Urine Bilirubin Neg (Negative) 08/21/21 10:30 Urine Urobilinogen Norm mg/dL (Negative) 08/21/21 10:30 Ur Leukocyte Esterase Negative (Negative) 08/21/21 10:30 Critical Care Time Critical Care Time: Critical Care Time: No Discharge Plan Discharge Patient Disposition: Home Clinical Impression: Acute low back pain Qualifiers: Back pain laterality: left Sciatica presence: without sciatica Qualified Code(s): M54.50 - Low back pain, unspecified Condition: Stable Prescriptions: New methocarbamol 500 mg tablet 500 mg PO TID Qty: 30 0RF Medrol (He) 4 mg tablets,dose pack See Rx Instructions PO .COMPLEX Qty: 21 0RF Rx Instructions: orally per package directions ketorolac 10 mg tablet 10 mg PO Q8H PRN (Reason: pain) 3 Days 0RF Discharge Orders: Discharge ED (Routine); Ordered 08/21/21 Ordered By: Allison Richard Discharge Diet: Usual diet Discharge Activity: Increase activity as tolerated Patient Instructions: Ketorolac (By mouth), Methocarbamol (By mouth), Methylprednisolone (By mouth) (Medrol, Medrol Dosepak), Opioid Safety Activity Restrictions/Additional Instructions: Take medications as prescribed. Warm, moist heat recommended. Topical muscle rub recommended. Follow-up with PCP in 5 to 7 days if no improvement. Return to the ER with new or worsening symptoms. Stand Alone Forms: Work/School Release Coding Level of Care Code ED Network Systems Integrator for Chg Fwd Exam Comprehensive
[2021-08-21] MEDS: ketorolac 30 mg/mL INJ IM (09:21)
[2021-08-21] MEDS: ondansetron 4 MG Tablet PO (09:30)
[2021-08-21] MEDS: orphenadrine 30 mg/mL Inj 2 mL 60 MG IM (09:30)
[2021-08-21 09:49] LABS: Basophils # 0.1 10^3/uL (0.0-0.1); Basophils % 0.6 %; Eosinophils # 0.2 10^3/uL (0.0-0.8); Eosinophils % 1.8 %; Hematocrit 49.4 % (42.0-52.0); Hemoglobin 16.9 g/dL (11.7-16.6); Lymphocytes # 1.8 10^3/uL (0.8-4.8); Lymphocytes % 19.3 %; Mean Corpuscular HGB Conc 34.2 g/dL (30.0-36.0); Mean Corpuscular Hemoglobin 30.8 pg (28.0-34.0); Mean Corpuscular Volume 90.1 fl (80-94); Mean Platelet Volume 9.7 fL (7.4-10.4); Monocytes # 0.6 10^3/uL (0.2-0.9); Monocytes % 5.9 %; Neutrophils # 6.73 10^3/uL (1.8-7.7); Neutrophils % 72.2 %; Nucleated Red Blood Cells % 0 %; Platelet Count 351 10^3/cmm (130-400); Red Blood Count 5.48 10^6/uL (4.1-5.3); Red Cell Distribution Width 12.8 % (12.1-15.1); White Blood Count 9.3 10^3/uL (4.0-10.0)
[2021-08-21 10:36] LABS: Alanine Aminotransferase 114 U/L (0-41); Albumin Level 4.7 g/dL (3.5-5.2); Alkaline Phosphatase 77 IU/L (40-130); Aspartate Amino Transferase 55 U/L (0-40); Blood Urea Nitrogen 12 mg/dL (6-20); Carbon Dioxide 23 mmol/L (22-29); Chloride 101 mmol/L (98-107); Globulin 2.8 g/dL (1.3-4.6); Glomerular Filtration Rate 161.6 mL/min (90-130); Glucose 107 mg/dL (65-115); Lipase 15 U/L (13-60); Osmolality Calculated 282 mOsm/kg (285-295); Sodium 136 mmol/L (136-145); Total Bilirubin 0.7 mg/dL (0.15-1.2); Total Protein 7.5 g/dL (6.6-8.7)
[2021-08-21 10:41] LABS: Add Urine Microscopic? NO; Charge for UA Resulting for Rev
[2021-08-21 11:17] LABS: Bilirubin Urine Neg (Negative); Blood Urine Neg (Negative); Glucose Urine UA Norm (Normal); Ketones Urine 1+ (Negative); Leukocyte Esterase Urine Negative (Negative); Nitrate Urine Negative (Negative); Protein Urine Neg (Negative); Urine Appearance Clear (CLEAR); Urine Color Dark Yellow (Yellow); Urobilinogen Urine Norm (Negative); pH Urine 6.5 (5-7)
--- NOTE | 2021-08-21 11:21 | XRR_ITS ---
PROCEDURE INFORMATION: Exam: XR Thoracic Spine Exam date and time: 08/21/2021 11:40 AM Age: 26 years old Clinical indication: Other: Low back pain; Additional info: Acute back pain TECHNIQUE: Imaging protocol: XR of the thoracic spine. Views: 3 views. COMPARISON: CR XR chest 1V portable [id number] 10/20/2020 1:43 PM FINDINGS: Bones/joints: Normal. No acute fracture. Normal alignment. Soft tissues: Unremarkable. XR/XR thoracic spine 3V* [id number] IMPRESSION: No acute findings.
--- NOTE | 2021-08-21 11:21 | XRR_ITS ---
PROCEDURE INFORMATION: Exam: XR Lumbosacral Spine Exam date and time: 08/21/2021 11:40 AM Age: 26 years old Clinical indication: Low back pain; Additional info: Acute back pain TECHNIQUE: Imaging protocol: XR of the lumbosacral spine. Views: 2 or 3 views. COMPARISON: CT abdomen pelvis w con* [id number] 10/20/2020 12:14 PM FINDINGS: Bones/joints: There is right side spondylolysis L5-S1. There is no evidence of spondylolisthesis. There is normal l alignment. Soft tissues: Unremarkable. XR/XR lumbar spine 2-3V* [id number] IMPRESSION: Right side spondylolysis L5-S1 Otherwise negative for acute bony abnormality.
--- NOTE | 2021-09-08 13:44 | DCPLANNER ---
late entry - beauty shop manager had message to speak with patient about getting established with a primary care physician, insurance case manager was unable to speak with patient or leave a voicemail at this time.
== END 2021-08-21 13:21 | disposition home or self-care (01) ==
PROVIDERS: Emergency Provider Physician Assistant
DX: M54.50 Low back pain, unspecified (principal); R11.2 Nausea with vomiting, unspecified
CPT/HCPCS: 72072; 72100; 80053; 81003; 83690; 85025; 96372; 99284; J1885; J2360; Q0162

== ENCOUNTER 2021-10-22 00:23 | Emergency (ER) | payer SELFPAY ==
[2021-10-22 00:48] VITALS: BP 132/66; PULSE 64; RESP 18; TEMP 36.6; O2SAT 95; BMI 28.3
--- NOTE | 2021-10-22 00:48 | ED_ITS ---
HPI - Dental/Oral General: Chief complaint: Dental/Oral Stated complaint: Left Side Infection\Face to Chest Time Seen by Provider: 10/22/21 00:43 Source: patient Mode of arrival: ambulatory Limitations: no limitations History of Present Illness: 26-year male states been having left-sided dental pain over the last 2 days. States pain is sharp milling in the left upper molars. States his pain is sharp in nature he rates it a 6 out of 10 denies any radiation of his pain he has no trismus denies any fevers. Associated symptoms: Denies fever(s) Review of Systems Const: Denies: fever(s), chills, body aches or change in appetite Eyes: Denies: blurry vision or eye discomfort ENMT: Reports: dental pain Card: Denies: chest pain Resp: Denies: dyspnea GI: Denies: abdominal pain, nausea, vomiting or diarrhea : Denies: dysuria Musc: Denies: neck pain or back pain Skin/Breast: Denies: rash Neuro: Denies: headache(s) Psych: Denies: depression Shailesh/Lymph: Denies: easy bruising All/Imm: Denies: urticaria PFSH ED PFSH: Medical History No significant past medical history Surgical History No significant past surgical history Social History Smoking and tobacco status: current every day smoker cigarettes Alcohol intake: current Alcohol intake frequency: 3 or more drinks per day Physical Exam Const: COMMON NORMALS: no acute distress, patient oriented x3 and healthy appearing HENMT: COMMON NORMALS: normocephalic and atraumatic HEAD & SCALP: normocephalic and atraumatic OTHER: Multiple dental caries no abscesses no trismus Eye: COMMON NORMALS: Equal, round and reactive pupils present and EOMs intact bilaterally PUPIL: Yes Equal, round and reactive pupils present Neck/C-Spine: COMMON NORMALS: full ROM and supple Chest: COMMONS NORMALS: normal inspection of the chest and normal palpation of entire chest wall Resp: COMMON NORMALS: normal respiratory effort, No retractions, No use of accessory muscles and clear to auscultation bilaterally AUSCULTATION: clear to auscultation bilaterally Cardio: COMMON NORMALS: regular rate, regular rhythm and No murmurs present (Cardio) RATE: regular rate RHYTHM: regular rhythm GI: COMMON NORMALS: Normal to inspection, nondistended, normoactive bowel sounds present, Soft to palpation, non-tender and no masses PALPATION: Yes Soft to palpation Extremity: COMMON NORMALS: normal to inspection and full ROM Neuro: COMMON NORMALS: patient oriented x3, moves all extremities and no focal motor deficits Psych: COMMON NORMALS: mental status grossly normal, Normal thought process present and cooperative THOUGHT PROCESS: Normal thought process present Skin: COMMON NORMALS: no rashes or lesions noted and no wounds GENERAL SKIN EXAM: no rashes or lesions noted MDM - Dental/Oral Medical Decision Making Patient presents for dental pain he does have poor dentition with multiple dental caries no signs of abscess or trismus we will place patient on an tibiotics along with Naprosyn he is to follow-up with dentist he is stable for discharge he understands and agrees to plan. Discharge Plan Discharge Patient Disposition: Home Clinical Impression: Pain, dental Condition: Stable Prescriptions: New cephalexin 500 mg capsule 500 mg PO TID 7 Days Qty: 21 0RF ondansetron 4 mg tablet,disintegrating 4 mg PO Q6H PRN (Reason: nausea and vomiting) Qty: 14 0RF Naprosyn 500 mg tablet 500 mg PO BID PRN (Reason: pain) Qty: 20 0RF No Action methocarbamol 500 mg tablet 500 mg PO TID Qty: 30 0RF Medrol (He) 4 mg tablets,dose pack See Rx Instructions PO .COMPLEX Qty: 21 0RF Rx Instructions: orally per package directions Discharge Orders: Discharge ED (Routine); Ordered 10/22/21 Ordered By: Vickie Silva Discharge Diet: Advance as tolerated Discharge Activity: Resume usual activity Patient Instructions: Toothache (ED) Coding Level of Care Code ED [employer] Senior Officer for Quan Herrera
[2021-10-22 00:57] VITALS: BP 132/66; PULSE 64; RESP 16; O2SAT 96
[2021-10-22] MEDS: HYDROcodone-acetaminophen 10-325 mg Tablet 1 TAB PO (01:09)
[2021-10-22] MEDS: ondansetron 4 MG Tablet PO (01:09)
[2021-10-22 01:36] VITALS: BP 128/80; PULSE 66; RESP 16; O2SAT 96
== END 2021-10-22 01:41 | disposition home or self-care (01) ==
PROVIDERS: Emergency Provider Emergency Medicine
DX: K08.89 Other specified disorders of teeth and supporting structures (principal); F17.210 Nicotine dependence, cigarettes, uncomplicated
CPT/HCPCS: 99283; Q0162

== ENCOUNTER 2021-12-21 05:59 | Emergency (ER) | payer SELFPAY ==
--- NOTE | 2021-12-21 06:05 | ECG_ITS ---
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 Measurements Intervals [place] Rate: 68 P: 48 AL: 166 QRS: 18 QRSD: 103 T: 30 QT: 360 QTc: 385 Interpretive Statements SINUS RHYTHM Compared to ECG 09/01/2020 02:09:45 Sinus bradycardia no longer present Electronically Signed On 12-21-2021 12:46:54 CDT by Alyssa Donnelly M.D. [email or web address]
[2021-12-21 06:09] VITALS: BP 129/70; PULSE 73; RESP 18; TEMP 36.5; O2SAT 97; BMI 29.0
--- NOTE | 2021-12-21 06:12 | W.ED.GENADLT ---
HPI - General Adult General: Chief complaint: Upper Respiratory Infection Stated complaint: Chest pain, throat swollen, headache Time Seen by Provider: 12/21/21 06:11 Source: patient Mode of arrival: ambulatory History of Present Illness: 26-year-old male presents emergency room he had headache with sore throat for the last 3 to 4 days. He states he feels a pressure behind his eyes he is had a lot of nasal drainage along with a headache. Denies any vomiting or diarrhea. No fever. No dysuria urgency or frequency moderate nonproductive cough. Onset (ago): day(s) (3-4) Severity: mild Relieving factors: none Exacerbating factors: none Associated symptoms: Reports chest pain and headache(s); Deny confusion, cough, diaphoresis, decreased appetite, dyspnea, fevers/chills, malaise, nausea, rash, palpitations, seizures, short of breath, syncope, vomiting or weakness Treatments prior to arrival: none Review of Systems Const: Denies: fever(s), chills, fatigue, malaise or diaphoresis ENMT: Denies: throat pain, ear or mastoid pain, nasal discharge or nasal congestion Card: Reports: chest pain; Denies: palpitations or syncope Resp: Denies: dyspnea GI: Denies: abdominal pain, nausea or vomiting : Denies: flank pain, difficulty urinating, dysuria, urinary frequency or urinary urgency Musc: Reports: neck pain Skin/Breast: Denies: rash Neuro: Reports: headache(s); Denies: confusion PFSH ED PFSH: Medical History No significant past medical history Surgical History No significant past surgical history Social History Smoking and tobacco status: current every day smoker cigarettes Alcohol intake: current Alcohol intake frequency: 3 or more drinks per day Physical Exam Const: COMMON NORMALS: no acute distress GENERAL APPEARANCE: cooperative and comfortable ORIENTATION/CONSCIOUSNESS: Yes awake, Yes oriented to person, Yes oriented to place and Yes oriented to time HENMT: COMMON NORMALS: normocephalic, atraumatic, hearing grossly normal bilaterally, external ears normal, EAC's normal, TM's normal bilaterally, Normal nasal mucous membranes and turbinates present, moist oral mucous membranes and oropharynx normal HEAD & SCALP: normocephalic and atraumatic NOSE: Normal nasal mucous membranes and turbinates present EXTERNAL EAR: Yes external ears normal EXTERNAL AUDITORY CANAL: EAC's normal TYMPANIC MEMBRANE: TM's normal bilaterally Eye: COMMON NORMALS: Equal, round and reactive pupils present, EOMs intact bilaterally, conjunctivae normal and no scleral icterus CONJUNCTIVA: Yes conjunctivae normal PUPIL: Yes Equal, round and reactive pupils present Neck/C-Spine: COMMON NORMALS: full ROM and supple Lymph: LYMPHATIC: lymphadenopathy (Nonspecific cervical lymphadenopathy mildly tender) Resp: COMMON NORMALS: normal respiratory effort, No retractions, No use of accessory muscles and clear to auscultation bilaterally AUSCULTATION: clear to auscultation bilaterally Cardio: COMMON NORMALS: regular rate, regular rhythm and No murmurs present (Cardio) RATE: regular rate RHYTHM: regular rhythm Extremity: COMMON NORMALS: normal to inspection, capillary refill normal, no clubbing, cyanosis or edema, no calf tenderness and no pedal edema Neuro: SENSORIUM/ORIENTATION: Yes oriented to person, Yes oriented to place and Yes oriented to time Skin: COMMON NORMALS: no rashes or lesions noted GENERAL SKIN EXAM: no rashes or lesions noted Course Vital Signs: Vital signs: Vital Signs Temperature 97.7 F 12/21/21 06:09 Pulse Rate 68 12/21/21 06:19 Respiratory Rate 18 12/21/21 06:19 Blood Pressure 124/74 12/21/21 06:19 Pulse Oximetry 99 12/21/21 06:19 Oxygen Delivery Nh thod 12/21/21 06:19 [facility] - General Adult Medical Decision Making Clindamycin p.o. Supportive cares. If not improving in next week recheck with primary care. Medical Records I reviewed the patient's medical records. Lab Data I reviewed the patient's lab results. Discharge Plan Discharge Patient Disposition: Home Clinical Impression: Upper respiratory infection Condition: Stable Prescriptions: New clindamycin HCl 300 mg capsule 300 mg PO QID 10 Days Qty: 40 0RF Discontinued ondansetron 4 mg tablet,disintegrating 4 mg PO Q6H PRN (Reason: nausea and vomiting) Qty: 14 0RF naproxen [Naprosyn] 500 mg tablet 500 mg PO BID PRN (Reason: pain) Qty: 20 0RF methocarbamol 500 mg tablet 500 mg PO TID Qty: 30 0RF methylprednisolone [Medrol (He)] 4 mg tablets,dose pack See Rx Instructions PO .COMPLEX Qty: 21 0RF Rx Instructions: orally per package directions Discharge Orders: Discharge ED (Routine); Ordered 12/21/21 Ordered By: Curtis Tavares Discharge Diet: Usual diet Discharge Activity: Increase activity as tolerated Patient Instructions: Opioid Safety Activity Restrictions/Additional Instructions: Tylenol ibuprofen [id number] cough cold remedies as needed. Clindamycin 1 tablet 4 times a day for 10 days. If not improving check with your primary care provider. Coding Level of Care Code ED Ordering Box Operator for Quan Herrera
[2021-12-21 06:19] VITALS: BP 124/74; PULSE 68; RESP 18; O2SAT 99
== END 2021-12-21 06:31 | disposition home or self-care (01) ==
PROVIDERS: Emergency Provider Family Medicine
DX: J06.9 Acute upper respiratory infection, unspecified (principal); F17.210 Nicotine dependence, cigarettes, uncomplicated
CPT/HCPCS: 93005; 99283

== ENCOUNTER 2021-12-30 20:38 | Emergency (ER) | payer SELFPAY ==
[2021-12-30 20:39] VITALS: BP 138/85; PULSE 76; RESP 16; TEMP 36.6; O2SAT 97
--- NOTE | 2021-12-30 20:55 | XRR_ITS ---
PROCEDURE INFORMATION: Exam: XR Right Hand Exam date and time: 12/30/2021 9:03 PM Age: 26 years old Clinical indication: Injury or trauma; Other: Punched headlight; Blunt trauma (contusions or hematomas); Hand; Right; Additional info: Laceration thumb TECHNIQUE: Imaging protocol: Radiologic exam of the Right hand. Views: 1 or 2 views. COMPARISON: No relevant prior studies available. FINDINGS: Bones/joints: Normal. Soft tissues: Normal. XR/XR hand RT 2V [id number] IMPRESSION: No acute findings.
[2021-12-30] MEDS: neomycin-poly-bacitracin oint 28 gm 1 APPLIC TOPICAL (22:36)
--- NOTE | 2021-12-31 00:12 | ED_ITS ---
HPI - Wound/Laceration General: Chief Complaint: Wound/Laceration Stated Complaint: right hand lac Time Seen by Provider: 12/30/21 20:50 History of Present Illness: 26-year-old male in today for a laceration to his hand. Patient reports that earlier today he cut his hand on headlight that broke. He reports that he came to ER earlier but then got frustrated by the wait time and left and now he is returned. He reports he is up-to-date on his tetanus within the last 5 years Associated symptoms: Denies chills or fever(s) Review of Systems Const: Denies: fever(s), chills or body aches Skin/Breast: Reports: other (Laceration to the thumb of the right hand and the palm) [facility] ED PFSH: Medical History No significant past medical history Surgical History No significant past surgical history Social History Smoking and tobacco status: current every day smoker cigarettes Alcohol intake: current Alcohol intake frequency: 3 or more drinks per day Physical Exam Const: COMMON NORMALS: no acute distress, patient oriented x3 and alert OTHER: Patient is intoxicated Extremity: NARRATIVE EXTREMITY EXAM: Patient has a laceration to the right thumb proximal first metacarpal. Patient flexion and extension of the thumb remains intact. Two-point discrimination is normal. CSM within normal limits. No obvious tendon involvement. Wound approximates well. Bleeding is controlled. Patient has a horizontal laceration palmar surface that is approximately 2 cm. Bleeding is controlled. Flexion and extension of all fingers are intact. CSM is normal to the entire hand. Two-point discrimination is normal. Neuro: COMMON NORMALS: patient oriented x3 SENSORIUM/ORIENTATION: Yes alert Procedures Laceration Laceration 1: Site: hand (Right thumb) Side (If applicable): right Size (cm): 4 Description: linear Depth: simple, single layer Local Anesthetic: lidocaine 1% Amount of anesthesia used (mL): 3 Pre-repair: wound explored, irrigated extensively and deep structures intact Skin layer closed with: nylon Size (cm): 3-0 Number of sutures: 7 Technique: simple, interrupted Laceration 2: Site: hand (Right palm) Side (If applicable): right Size (cm): 2 Description: linear Depth: simple, single layer Local Anesthetic: lidocaine 1% Amount of anesthesia used (mL): 2 Pre-repair: wound explored and irrigated extensively Skin layer closed with: nylon Size (cm): 3-0 Number of sutures: 5 Technique: simple, interrupted Course Vital Signs: Vital signs: Vital Signs Temperature 97.8 F 12/30/21 20:39 Pulse Rate 76 12/30/21 20:39 Respiratory Rate 16 12/30/21 20:39 Blood Pressure 138/85 12/30/21 20:39 Pulse Oximetry 97 12/30/21 20:39 Oxygen Delivery Me thod 12/30/21 20:39 MDM - Wound/Laceration Medical Decision Making Patient is a 26-year-old male in here after cutting his hand on a busted headlight. He reports his tetanus vaccine is up-to-date. X-ray does not show any fractures or radiopaque foreign bodies. After local lidocaine utilized at wounds extensive irrigation was done. No obvious foreign body appreciated. Suture repair completed. Patient still has full flexion extension of each digit of his hand. Patient tolerated procedure well with no immediate complications. Bleeding is controlled. Hand is dressed. Advised of aftercare for sutures. Start antibiotic prophylactic for infection. Follow-up in 5 to 7 days with PCP for removal of sutures or return to the ER for removal. Return to the ER sooner as needed for any new or worsening symptoms. Lab Data Radiology Impressions Hand X-Ray 12/30/21 20:55 IMPRESSION: No acute findings. Discharge Plan Discharge Patient Disposition: Home Clinical Impression: Laceration Condition: Stable Prescriptions: New cephalexin 500 mg capsule 500 mg PO BID 7 Days Qty: 14 0RF Discharge Orders: Discharge ED (Routine); Ordered 12/30/21 Ordered By: Karen Eldridge Discharge Diet: Usual diet Patient Instructions: Care For Your Stitches (ED) Activity Restrictions/Additional Instructions: Keep sutures clean and dry. Take antibiotic as prescribed. Monitor closely for signs of infection. Follow-up with your primary care provider in 5 to 7 days to have sutures removed. You may return to ER for that as well. Return to ER for any new or worsening symptoms. Coding Level of Care Code ED Computer Help Desk Specialist for Quan Herrera Exam Problem Focused
== END 2021-12-30 22:38 | disposition home or self-care (01) ==
PROVIDERS: Emergency Provider Nurse Practitioner Family
DX: S61.011A Laceration without foreign body of right thumb without damage to nail, initial encounter (principal); S61.411A Laceration without foreign body of right hand, initial encounter; F17.210 Nicotine dependence, cigarettes, uncomplicated; W26.8XXA Contact with other sharp object(s), not elsewhere classified, initial encounter
CPT/HCPCS: 12002; 73120; 99283

== ENCOUNTER 2022-01-30 13:10 | Emergency (ER) | payer SELFPAY ==
[2022-01-30 13:34] VITALS: BP 135/79; PULSE 69; RESP 14; TEMP 36.8; O2SAT 96; BMI 29.9
[2022-01-30 14:30] VITALS: BP 132/90; PULSE 62; RESP 16; O2SAT 95
--- NOTE | 2022-01-30 15:10 | CT_ITS ---
WS: [id number] CT HEAD TECHNIQUE: Noncontrast CT of the head obtained from the skullbase to the vertex. CLINICAL INFORMATION: right sided numbness COMPARISON: CT September 01, 2020 DLP: 1054.[address] scans at [facility] use at least one of these dose optimization techniques: automated e xposure control; mA and/or kV adjustment per patient size (includes targeted exams where dose is matc hed to clinical indication); or iterative reconstruction. FINDINGS: No evidence of intracranial hemorrhage or mass effect. Ventricular system and basal cisterns are anderson nt. No extra-axial fluid collections. No evidence of mass or mass effect. Normal musa-white different iation. Paranasal sinuses and mastoid air cells are well aerated. .Normal visualized soft tissues. CT/CT head wo con* [id number] IMPRESSION: 1. No evidence of intracranial hemorrhage or mass effect. 2. No acute intracranial findings.
--- NOTE | 2022-01-30 15:12 | ED_ITS ---
HPI - General Adult General: Chief complaint: General Medical Stated complaint: right side tingliness Time Seen by Provider: 01/30/22 14:20 Source: patient and family Mode of arrival: ambulatory Limitations: no limitations History of Present Illness: This patient is in the emergency department this time accompanied by his family. He states he has been stressed over the last 2 to 3 days for which she normally smokes marijuana on a regular basis and he did so today. He states that he was speaking with his spouse and became even more stressed and anxious and started developing what he describes as some numbness in his face as well as in his right arm. States he is also has some tightness and discomfort in his right side of his neck into his right arm as well. He he denies any difficulty with speech, seizure activity etc. His family collaborates his history and that they state that he has not had any change in his speech etc. He states he is having mild sided right-sided headache. He fr eely admits to smoking marijuana but denies any other street drugs. He states he also drinks alcohol on a regular basis and has not drank any alcohol today. He denies energy drinks or other stimulants. He denies any other neurologic symptoms and to include focal motor weakness etc. He states he had 1 episode of vomiting this morning he was feeling anxious. Associated symptoms: Reports vomiting; Deny chest pain, confusion, dyspnea, nausea, rash or palpitations Review of Systems Const: Denies: fever(s), chills or body aches Eyes: Denies: change in vision ENMT: Denies: throat pain, odynophagia, nasal discharge or nasal congestion Card: Denies: chest pain, palpitations or irregular heart rhythm Resp: Denies: dyspnea, productive cough or non-productive cough GI: Reports: vomiting; Denies: abdominal pain or nausea : Denies: flank pain, difficulty urinating, dysuria or urinary frequency Musc: Reports: neck pain; Denies: back pain, extremity pain or extremity swelling Skin/Breast: Denies: rash or pruritus Neuro: Reports: sensory changes; Denies: numbness in extremities, weakness in extremities, difficulty walking, frequent falls, dizziness, vertigo, confusion, Slurred speech present, difficulty communicating thoughts or seizure-like activity Endo: Denies: polyuria, polydipsia or tired all the time Shailesh/Lymph: Denies: easy bruising or easy bleeding All/Imm: Denies: urticaria or throat swelling PFSH ED PFSH: Medical History No significant past medical history Surgical History No significant past surgical history Social History Smoking and tobacco status: current every day smoker cigarettes Alcohol intake: current Alcohol intake frequency: 3 or more drinks per day Physical Exam Narrative: EXAM NARRATIVE: He makes good eye contact. Speech is generally goal-directed. He appears to be somewhat anxious. Const: COMMON NORMALS: no acute distress, average body habitus and patient oriented x3 EXAM LIMITATIONS: altered mental status GENERAL APPEARANCE: cooperative and anxious ORIENTATION/CONSCIOUSNESS: Yes awake, Yes oriented to person and Yes oriented to place HENMT: COMMON NORMALS: normocephalic, atraumatic, Normal nasal mucous membranes and turbinates present, moist oral mucous membranes and oropharynx normal HEAD & SCALP: normocephalic and atraumatic FACE & SINUS: normal facial exam NOSE: Normal nasal mucous membranes and turbinates present Eye: COMMON NORMALS: Equal, round and reactive pupils present, EOMs intact bilaterally and conjunctivae normal CONJUNCTIVA: Yes conjunctivae normal PUPIL: Yes Equal, round and reactive pupils present Neck/C-Spine: OTHER: Cervical spine range of motion is normal to rotation, side bending, flexion extension. He does have tenderness along the right trapezius which extends along the superior border the trapezius. This is exacerbated by head turning to the left. There is no midline tenderness or step-off. Chest: COMMONS NORMALS: normal inspection of the chest Resp: COMMON NORMALS: normal respiratory effort, No use of accessory muscles and clear to auscultation bilaterally AUSCULTATION: clear to auscultation bilaterally Cardio: COMMON NORMALS: regular rate, regular rhythm, No murmurs present (Cardio) and Peripheral pulses 2+ throughout RATE: regular rate RHYTHM: regular rhythm PERIPHERAL PULSES: Peripheral pulses 2+ throughout GI: COMMON NORMALS: Normal to inspection, nondistended, normoactive bowel sounds present, Soft to palpation and non-tender PALPATION: Yes Soft to palpation : COMMON NORMALS: Yes no CVA tenderness BLADDER/KIDNEY EXAM: Yes no CVA tenderness Back/Pelvis: COMMON NORMALS: no CVA tenderness, thoracic and lumbar spine normal to inspection, no thoracic nor lumbar tenderness, thoraco-lumbar ROM normal and straight leg raise negative bilaterally Extremity: COMMON NORMALS: normal to inspection, full ROM, capillary refill normal, no calf tenderness and no pedal edema Neuro: COMMON NORMALS: patient oriented x3, moves all extremities, no focal motor deficits and no sensory deficits noted SENSORIUM/ORIENTATION: Yes oriented to person and Yes oriented to place CRANIAL NERVES: Yes CN normal except as noted SPEECH: speech normal GAIT: Yes Normal gait present Psych: COMMON NORMALS: mental status grossly normal, cooperative, speech normal, denies hallucinations, denies homicidal ideation and denies suicidal ideation SPEECH: Yes normal speech Skin: COMMON NORMALS: no rashes or lesions noted, no wounds, turgor normal and no jaundice GENERAL SKIN EXAM: no rashes or lesions noted and turgor normal Course Reevaluation(s): Reevaluation #1: Patient states he is feeling much better. Repeat examination reveals him to be alert pupils are reactive and equal. Speech is goal-directed and fluent. No focal motor or sensory findings or any other focal findings on repeat neurologic examination. We discussed all findings and their implications. He voices understanding. His spouse is supportive he is stable for discharge at this time. Time: 17:54 Vital Signs: Vital signs: Vital Signs Temperature 98.3 F 01/30/22 13:34 Pulse Rate 60 01/30/22 17:00 Respiratory Rate 16 01/30/22 14:30 Blood Pressure 127/72 01/30/22 17:00 Pulse Oximetry 94 01/30/22 17:00 Oxygen Delivery Pr thod 01/30/22 17:00 [facility] - General Adult Medical Decision Making Patient who presented to our emergency department with a history of anxiety and stress over the past several days has complained of some right-sided tingling that began today after an emotional succussion with his spouse. Also has some circumoral numbness. None of these symptoms were associated with any focal weakness, speech difficulty etc. His clinical examination was reassuring. His imaging was reassuring. He did show that he was positive for marijuana which she freely admitted to and methamphetamines which she did not. At this point time does not suggest a acute DIRECTOR OF COMMUNITY EDUCATION event or other ongoing emergency medical condition. We discussed his substance abuse to include alcohol and other substances. He voiced understanding and agreed to try to reduce his use. He is stable at this time with return precautions. Medical Records I reviewed the patient's medical records. Lab Data I reviewed the patient's lab results. : 01/30/22 15:28 01/30/22 15: Radiology Impressions Head CT 01/30/22 15:10 IMPRESSION: 1. No evidence of intracranial hemorrhage or mass effect. 2. No acute intracranial findings. Laboratory Results WBC 13.6 10^3/uL (4.0-10.0) H 01/30/22 15: RBC 5.28 10^6/uL (4.1-5.3) 01/30/22: Hgb 16.5 g/dL (11.7-16.6) 01/30/22: Hct 47.2 % (42.0-52.0) 01/30/22: MCV 89.4 fl (80-94) 01/30/22: MCH 31.3 pg (28.0-34.0) 01/30/22 15: MCHC 35.0 g/dL (30.0-36.0) 01/30/22: RDW 12.9 % (12.1-15.1) 01/30/22: Plt Count 333 10^3/cmm (130-400) 01/30/22 15: MPV 9.7 fL (7.4-10.4) 01/30/22: Neut % (Auto) 74.8 % 01/30/22: Lymph % (Auto) 16.8 % 01/30/22 15: [place] % (Auto) 6.3 % 01/30/22: Eos % (Auto) 1.0 % 01/30/22: Baso % (Auto) 0.6 % 01/30/22: Neut # (Auto) 10.17 10^3/uL (1.8-7.7) H 01/30/22 15: Lymph # (Auto) 2.3 10^3/uL (0.8-4.8) 01/30/22 15: [place] # (Auto) 0.9 10^3/uL (0.2-0.9) 01/30/22 15: Eos # (Auto) 0.1 10^3/uL (0.0-0.8) 01/30/22 15: Baso # (Auto) 0.1 10^3/uL (0.0-0.1) 01/30/22 15: Nucleated RBC % (auto) 0 % 01/30/22 15: Nucleated RBCs # 0.0 /100WBC 01/30/22 15: Sodium 137 mmol/L (136-145) 01/30/22 15: Potassium 4.2 mmol/L (3.5-5.1) 01/30/22 15: Chloride 100 mmol/L (98-107) 01/30/22: Carbon Dioxide 22 mmol/L (22-29) 01/30/22 15: Anion Gap 19.2 (5-19) H 01/30/22 15: BUN 10 mg/dL (6-20) 01/30/22 15: Creatinine 0.6 mg/dL (0.7-1.2) L 01/30/22 15: GFR Calculation 161.6 mL/min (90-130) H 01/30/22 15: Glucose 93 mg/dL (65-115) 01/30/22 15: Calculated Osmolality 283 mOsm/kg (285-295) L 01/30/22 15: Calcium 10.5 mg/dL (8.5-10.5) 01/30/22 15: Total Bilirubin 0.8 mg/dL (0.15-1.2) 01/30/22 15: AST 60 U/L (0-40) H 01/30/22 15: ALT 103 U/L (0-41) H 01/30/22 15: Alkaline Phosphatase 85 U/L (40-130) 01/30/22 15: Total Protein 7.9 g/dL (6.6-8.7) 01/30/22 15: Albumin 4.9 g/dL (3.5-5.2) 01/30/22 15: Globulin 3.0 g/dL (1.3-4.6) 01/30/22 15: TSH 1.26 uIU/mL (0.27-4.20) 01/30/22 15:28 Urine Opiates Screen Negative ng/mL (Negative) 01/30/22 16:38 Ur Barbiturates Screen Negative ng/mL (Negative) 01/30/22 16:38 Ur Phencyclidine Scrn Negative ng/mL (Negative) 01/30/22 16:38 Ur Amphetamines Screen Positive ng/mL (Negative) H 01/30/22 16:38 U Benzodiazepines Scrn Negative ng/mL (Negative) 01/30/22 16:38 Urine Cocaine Screen Negative ng/mL (Negative) 01/30/22 16:38 U Marijuana (THC) Screen Positive ng/mL (Negative) H 01/30/22 16:38 Discharge Plan Discharge Patient Disposition: Home Clinical Impression: Anxiety, Substance use Condition: Stable Prescriptions: No Action Pepcid 20 mg Tablet 20 mg PO DAILY PRN (Reason: Acid Reflux) Discharge Orders: Discharge ED (Routine); Ordered 01/30/22 Ordered By: Christophe Solsi Discharge Diet: Usual diet Discharge Activity: Increase activity as tolerated Patient Instructions: Opioid Safety, Pain Management Activity Restrictions/Additional Instructions: Moderate your use of marijuana and other substances especially alcohol. If you develop any new, concerning or persistent symptoms return to the emergency department immediately. Follow-up with your regular doctor as needed for routine and episodic care but you are welcome to return to the emergency department at any time for concerning symptoms. Coding Level of Care Code ED Health And Wellness Coach for Quan Fwbel Exam Comprehensive
[2022-01-30 15:38] LABS: Basophils # 0.1 10^3/uL (0.0-0.1); Basophils % 0.6 %; Eosinophils # 0.1 10^3/uL (0.0-0.8); Hematocrit 47.2 % (42.0-52.0); Hemoglobin 16.5 g/dL (11.7-16.6); Lymphocytes # 2.3 10^3/uL (0.8-4.8); Lymphocytes % 16.8 %; Mean Corpuscular Hemoglobin 31.3 pg (28.0-34.0); Mean Corpuscular Volume 89.4 fl (80-94); Mean Platelet Volume 9.7 fL (7.4-10.4); Monocytes # 0.9 10^3/uL (0.2-0.9); Monocytes % 6.3 %; Neutrophils # 10.17 10^3/uL (1.8-7.7); Neutrophils % 74.8 %; Nucleated Red Blood Cells % 0 %; Platelet Count 333 10^3/cmm (130-400); Red Blood Count 5.28 10^6/uL (4.1-5.3); Red Cell Distribution Width 12.9 % (12.1-15.1); White Blood Count 13.6 10^3/uL (4.0-10.0)
[2022-01-30 16:04] LABS: Alanine Aminotransferase 103 U/L (0-41); Albumin Level 4.9 g/dL (3.5-5.2); Alkaline Phosphatase 85 U/L (40-130); Anion Gap 19.2 (5-19); Aspartate Amino Transferase 60 U/L (0-40); Blood Urea Nitrogen 10 mg/dL (6-20); Calcium 10.5 mg/dL (8.5-10.5); Carbon Dioxide 22 mmol/L (22-29); Chloride 100 mmol/L (98-107); Glomerular Filtration Rate 161.6 mL/min (90-130); Glucose 93 mg/dL (65-115); Osmolality Calculated 283 mOsm/kg (285-295); Potassium 4.2 mmol/L (3.5-5.1); Sodium 137 mmol/L (136-145); Thyroid Stimulating Hormone 1.26 uIU/mL (0.27-4.20); Total Bilirubin 0.8 mg/dL (0.15-1.2); Total Protein 7.9 g/dL (6.6-8.7)
[2022-01-30] MEDS: sodium chloride 0.9% 1,000 ML 999 ML IV (16:50)
[2022-01-30 17:00] VITALS: BP 127/72; PULSE 60; O2SAT 94
[2022-01-30 17:39] LABS: Amphetamines Screen Urine Positive (Negative); Barbiturates Screen Urine Negative (Negative); Benzodiazepines Screen Urine Negative (Negative); Cocaine Screen Urine Negative (Negative); Opiate Screen Urine Negative (Negative); PCP Screen Urine Negative (Negative); THC Screen Urine Positive (Negative)
== END 2022-01-30 18:06 | disposition home or self-care (01) ==
PROVIDERS: Emergency Provider Emergency Medicine
DX: F41.9 Anxiety disorder, unspecified (principal); F15.90 Other stimulant use, unspecified, uncomplicated; F12.90 Cannabis use, unspecified, uncomplicated; F17.210 Nicotine dependence, cigarettes, uncomplicated
CPT/HCPCS: 70450; 80053; 80306; 84443; 85025; 96360; 99285; J7030

== ENCOUNTER → 2022-06-22 09:28 | Outpatient (BNVA) | payer SELFPAY | PROVIDERS: PCP Family Medicine; Visit Provider Family Medicine | DX: K29.70 Gastritis, unspecified, without bleeding (principal); R11.2 Nausea with vomiting, unspecified; R19.7 Diarrhea, unspecified; K21.00 Gastro-esophageal reflux disease with esophagitis, without bleeding; F10.20 Alcohol dependence, uncomplicated; F17.200 Nicotine dependence, unspecified, uncomplicated; Z71.6 Tobacco abuse counseling; K29.20 Alcoholic gastritis without bleeding | CPT/HCPCS: 80053; 80061; 85025 ==

== ENCOUNTER 2023-05-01 08:02 | Emergency (ER) | payer SELFPAY ==
[2023-05-01 08:26] VITALS: BP 135/76; PULSE 85; RESP 18; TEMP 36.7; O2SAT 96; BMI 29.9
--- NOTE | 2023-05-01 09:42 | ED_ITS ---
HPI - Dental/Oral 2 General: Chief complaint: Dental/Oral Stated complaint: headache, jaw pain Time Seen by Provider: 05/01/23 08:13 Source: patient Mode of arrival: ambulatory Limitations: no limitations History of Present Illness: Patient is a 27-year-old male presents to ED today with a complaint of left lower dental pain over the past several days. Patient states he has a history of poor dental care and dental infections. Patient states he has tried multiple [id number] topical and oral analgesics all without much relief. He feels like the left side of his face is starting to swell. He has not noticed any neck swelling. He is eating, drinking, swallowing, controlling secretions normally. No fevers. He denies headache or neck pain. MD Complaint: tooth pain Teeth map: 1. Onset (ago): day(s) Duration: constant Severity: severe Relieving factors: nothing Exacerbating factors: nothing Context: history of dental caries and poor dental care Associated symptoms: Denies ear or mastoid pain, fever(s) or odynophagia Treatment prior to arrival: topical analgesic and oral analgesic Review of Systems 2 Const: Denies: fever(s), chills, body aches, fatigue or malaise ENMT: Reports: dental pain; Denies: throat pain, uvular edema, enlarged tonsils, odynophagia, hoarseness, mouth pain, swelling of lips/tongue, oral sores, bleeding gums, ear or mastoid pain or sinus pain Card: Denies: chest pain GI: Denies: nausea or vomiting Musc: Denies: neck pain Neuro: Denies: headache(s) PFSH ED 2 PFSH: Medical History GERD (gastroesophageal reflux disease) Nausea vomiting and diarrhea Acute viral disease Tension headache No significant past medical history Surgical History No significant past surgical history Family History Father Cancer stomach Family/Other Cancer 2 Paternal aunts--unknown Other Diabetes Hyperlipidemia Hypertension Lung disease Stroke Denies family history of CAD (coronary artery disease) Clotting disorder Dementia Psychiatric illness Chronic kidney disease (CKD) Anesthesia complication Bleeding disorder Social History (Reviewed 05/01/23 @ 10:26 by SHEMAR Landers Smoking and tobacco/nicotine status: current every day tobacco/nicotine user cigarettes [ Other cigarette details: 3/4PPD, 2PPD x 15yrs, 30PY] Alcohol intake: current Alcohol intake frequency: 3 or more drinks per day Alcohol type: hard liquor Substance/Drug Use: current Substance/Drug use frequency: daily Other substance/drug use details: smoking dabs (wax) Lives independently: Yes Marital status: Number of children: 2 Current occupational status: employed Current occupation: [employer] Current gender identity: Male Special avril needs: No Agree to transfusion: Yes Physical Exam 2 Const: COMMON NORMALS: no acute distress, average body habitus, patient oriented x3, no limitations, alert and well nourished GENERAL APPEARANCE: c ooperative HENMT: FACE & SINUS: normal facial exam, sinuses nontender and face symmetric MOUTH: Normal oral and palatal mucosa present and lip normal TEETH & GINGIVA: Yes caries and Yes poor dentition TEETH & GINGIVA IMAGES: 1. severe decay/caries; no obvious abscess noted THROAT: posterior oropharynx normal and tonsils normal; no uvular edema OTHER: no obvious facial/neck swelling; floor of mouth is soft Neck/C-Spine: COMMON NORMALS: no lymphadenopathy GENERAL: Yes normal visual inspection, No anterior neck swelling and No submandibular swelling Resp: COMMON NORMALS: normal respiratory effort Cardio: COMMON NORMALS: regular rate and regular rhythm RATE: regular rate RHYTHM: regular rhythm Neuro: COMMON NORMALS: patient oriented x3 SENSORIUM/ORIENTATION: Yes alert Course 2 Vital Signs: Vital signs: Vital Signs Temperature 98.1 F 05/01/23 08:26 Pulse Rate 85 05/01/23 08:26 Respiratory Rate 18 05/01/23 08:26 Blood Pressure 135/76 05/01/23 08:26 Pulse Oximetry 96 05/01/23 08:26 Oxygen Delivery Me thod Room Air 05/01/23 08:26 MDM - Dental/Oral Medical Decision Making Will place on antibiotics and give a small amount of pain medications that he may use sparingly. He was given a list of dental resources as he needs to follow-up with a dentist as soon as possible. No radiology studies performed this visit Discharge Plan Discharge Patient Disposition: Home Clinical Impression: Toothache, Dental caries Condition: Stable Prescriptions: New penicillin V potassium 500 mg tablet 500 mg PO Q8H 7 Days Qty: 21 0RF acetaminophen-codeine 300-30 mg tablet 1 tab PO Q6H PRN (Reason: pain) Qty: 10 0RF Discontinued amoxicillin 500 mg tablet 500 mg PO TID 10 Days Qty: 30 0RF Discharge Orders: Discharge ED (Routine); Ordered 05/01/23 Ordered By: Maria M Zamora Referrals: Ezequiel Camejo MD [Primary Care Provider] - Patient Instructions: Dental Caries (Cavities), Toothache (ED) Activity Restrictions/Additional Instructions: As we discussed I have given you a list of dental resources that you may call around and try to get a dentist appointment. You may also try [facility] located at [address] Coding Level of Care Code ED Principal Clerk Typist for Quan Herrera
== END 2023-05-01 10:05 | disposition home or self-care (01) ==
PROVIDERS: Emergency Provider Physician Assistant; PCP Family Medicine
DX: K02.9 Dental caries, unspecified (principal); F17.210 Nicotine dependence, cigarettes, uncomplicated
CPT/HCPCS: 99283

== ENCOUNTER 2024-02-26 18:38 | Emergency (ER) | payer SELFPAY ==
[2024-02-26] VITALS (8 sets, daily range): BP systolic 109–127; BP diastolic 59–70; PULSE 53–70; RESP 13–19; TEMP 36.8; O2SAT 93–97; BMI 29.0
--- NOTE | 2024-02-26 19:15 | XRR_ITS ---
PROCEDURE INFORMATION: Exam: XR Chest Exam date and time: 02/26/2024 7:26 PM Age: 28 years old Clinical indication: Pain; Chest pressure; Additional info: Chest pain TECHNIQUE: Imaging protocol: Radiologic exam of the chest. Views: 1 view. COMPARISON: CR (UP EXM, ) 11/16/2019 3:06 PM FINDINGS: Lungs: Unremarkable. No consolidation or mass. Pleural spaces: Unremarkable. No pleural effusion. No pneumothorax. Heart/Mediastinum: Unremarkable. No cardiomegaly. Bones/joints: Unremarkable. XR/XR chest 1V portable [id number] IMPRESSION: No acute findings.
--- NOTE | 2024-02-26 19:15 | ECG_ITS ---
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 Measurements Intervals [place] Rate: 49 P: 50 [place]: 170 QRS: 24 QRSD: 111 T: 37 QT: 417 QTc: 379 Interpretive Statements SINUS BRADYCARDIA MODERATE INTRAVENTRICULAR CONDUCTION DELAY [110+ ms QRS DURATION] NONSPECIFIC ST ELEVATION [0.05+ mV ST ELEVATION] Compared to ECG 12/21/2021 06:05:01 Intraventricular conduction delay now present ST (T wave) deviation now present Sinus rhythm no longer present Electronically Signed On 02-27-2024 19:02:01 INCREMENT MANAGER by Ellen Hickey M.D. [email or web address]
--- NOTE | 2024-02-26 19:20 | W.ED.CHESTPA ---
HPI - Chest Pain General: Chief Complaint: Chest Pain Stated Complaint: pain up jaw right side dizzy sweaty Time Seen by Provider: 02/26/24 19:11 History of Present Illness: 28-year-old male with history of tobacco dependence and marijuana use who presents to the emergency room with cough, headache and right-sided chest pain. No known fevers. He feels somewhat short of breath. No nausea or vomiting. This is been going on just for today. Related Data Previous Rx's Medication Instructions Recorded acetaminophen 300 mg-codeine 30 mg 1 tab PO Q6H PRN pain #10 tabs 05/01/23 tablet azithromycin 250 mg tablet See Rx Instructions PO .COMPLEX #6 02/26/24 (Zithromax Z-He) tabs dexamethasone 6 mg tablet 6 mg PO DAILY 5 days #5 tabs 02/26/24 Allergies Allergy/AdvReac Type Severity Reaction Status Date / Time tramadol Allergy ADR-Itching Verified 02/26/24 19:08 Review of Systems Narrative: Constitutional symptoms: Negative except as documented in HPI. Skin symptoms: Negative except as documented in HPI. Eye symptoms: Negative except as documented in HPI. ENMT symptoms: Negative except as documented in HPI. Respiratory symptoms: Negative except as documented in HPI. Cardiovascular symptoms: Negative except as documented in HPI. Gastrointestinal symptoms: Negative except as documented in HPI. Genitourinary symptoms: Negative except as documented in HPI. Musculoskeletal symptoms: Negative except as documented in HPI. Neurologic symptoms: Negative except as documented in HPI. Psychiatric symptoms: Negative except as documented in HPI. Endocrine symptoms: Negative except as documented in HPI. [facility] ED PFSH: Medical History GERD (gastroesophageal reflux disease) Nausea vomiting and diarrhea Acute viral disease Tension headache No significant past medical history Surgical History No significant past surgical history Family History Father Cancer stomach Family/Other Cancer 2 Paternal aunts--unknown Other Diabetes Hyperlipidemia Hypertension Lung disease Stroke Denies family history of CAD (coronary artery disease) Clotting disorder Dementia Psychiatric illness Chronic kidney disease (CKD) Anesthesia complication Bleeding disorder Social History Smoking and tobacco/nicotine status: current every day tobacco/nicotine user cigarettes [ Other cigarette details: 3/4PPD, 2PPD x 15yrs, 30PY] Alcohol intake: current Alcohol intake frequency: 3 or more drinks per day Alcohol type: hard liquor Substance/Drug Use: current Substance/Drug use frequency: daily Other substance/drug use details: smoking dabs (wax) Lives independently: Yes Marital status: Number of children: 2 Current occupational status: employed 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 Skin: Warm, dry. Head: Normocephalic, atraumatic. Neck: Supple, trachea midline. Eye: Extraocular movements are intact. Ears, nose, mouth and throat: mucosa moist. Cardiovascular: Regular, Normal peripheral perfusion. Respiratory: Lungs are clear to auscultation, respirations are non-labored, breath sounds are equal, Symmetrical chest wall expansion. Gastrointestinal: Soft, Nontender, Non distended Musculoskeletal: Normal ROM, no deformity. Neurological: Alert and oriented, No focal neurological deficit observed. Psychiatric: Cooperative, appropriate mood & affect. Course Vital Signs: Vital signs: Vital Signs Temperature 98.2 F 02/26/24 19:00 Pulse Rate 55 L 02/26/24 20:30 Respiratory Rate 18 02/26/24 20:30 Blood Pressure 121/59 02/26/24 20:30 Pulse Oximetry 93 02/26/24 20:30 Oxygen Delivery Me thod Room Air 02/26/24 19:50 MDM - Chest Pain Medical Decision Making Differential diagnosis for patient with chest pain includes but is not limited to and based on the above HPI, review of systems and physical exam: Pneumonia. unstable angina. angina. Acute coronary syndrome / [place]. Pulmonary embolism. Costochondritis / musculoskeletal. Pleurisy. Pericarditis. Esophageal spasm. Pancreatis. Cholecystitis. Orders placed to evaluate differential diagnosis based on the above differential, HPI and physical exam EKG: Time 1856. Rate 65. Normal sinus rhythm, No ST-T changes, no ectopy, normal OK & QRS intervals, This was reviewed and interpreted by myself the ER physician at 1900. There is quite a bit of interference Chest x-ray: No acute process. No infiltrate. No pneumothorax. This was reviewed and interpreted by myself the emergency room physician. I also reviewed the radiology report. Lab Review: Laboratory results were reviewed and interpreted by myself the emergency room physician. Lab work is unremarkable. No leukocytosis. No anemia. No renal failure. Viral panel is negative I reviewed the patient's medical record. Reexamination: Patient remained stable. No increased work of breathing. No altered mental status. No focal motor deficits. Assessment and plan: Viral illness ?Toradol in the emergency room - Discharged home - Discussed plan with patient. Answered any questions. - Evaluation and treatment of this problem were appropriate in the emergency setting. Lab Data 02/26/24 19:25 02/26/24 19:25 Radiology Impressions Chest X-Ray 02/26/24 19:15 IMPRESSION: No acute findings. Laboratory Results WBC 9.69 10^3/uL (3.29-11.43) 02/26/24 19: RBC 4.87 10^6/uL (3.85-5.65) 02/26/24 19: Hgb 15.60 g/dL (11.27-16.99) 02/26/24 19:25 Hct 43.2 % (37-53) 02/26/24 19:25 MCV 88.7 fl (82-101) 02/26/24 19:25 MCH 32.0 pg (27-33) 02/26/24 19: MCHC 36.1 g/dL (30-55) 02/26/24 19:25 RDW 12.8 % (12.1-15.1) 02/26/24 19: Plt Count 365 10^3/cmm (157-399) 02/26/24 19:25 MPV 9.1 fL (7.4-10.4) 02/26/24 19:25 Neut % (Auto) 66.5 % 02/26/24 19:25 Lymph % (Auto) 20.7 % 02/26/24 19:25 Russell % (Auto) 8.0 % 02/26/24 19:25 Eos % (Auto) 3.5 % 02/26/24 19:25 Baso % (Auto) 1.0 % 02/26/24 19: Neut # (Auto) 6.43 10^3/uL (1.8-7.7) 02/26/24 19:25 Lymph # (Auto) 2.0 10^3/uL (0.8-4.8) 02/26/24 19:25 Russell # (Auto) 0.8 10^3/uL (0.2-0.9) 02/26/24 19:25 Eos # (Auto) 0.3 10^3/uL (0.0-0.8) 02/26/24 19:25 Baso # (Auto) 0.1 10^3/uL (0.0-0.1) 02/26/24 19:25 Nucleated RBC % (auto) 0 % 02/26/24 19:25 Nucleated RBCs # 0.0 /100WBC 02/26/24 19:25 Sodium 133 mmol/L (136-145) L 02/26/24 19:25 Potassium 3.8 mmol/L (3.5-5.1) 02/26/24 19:25 Chloride 96 mmol/L (98-107) L 02/26/24 19:25 Carbon Dioxide 23 mmol/L (22-29) 02/26/24 19:25 Anion Gap 17.8 (5-19) 02/26/24 19:25 BUN 13 mg/dL (6-20) 02/26/24 19:25 Creatinine 0.6 mg/dL (0.7-1.2) L 02/26/24 19:25 GFR Calculation 159.3 mL/min (90-130) H 02/26/24 19:25 Glucose 86 mg/dL (65-115) 02/26/24 19:25 Calculated Osmolality 275 mOsm/kg (285-295) L 02/26/24 19:25 Calcium 9.9 mg/dL (8.5-10.5) 02/26/24 19:25 Total Bilirubin 0.5 mg/dL (0.15-1.2) 02/26/24 19:25 AST 62 U/L (0-40) H 02/26/24 19:25 ALT 82 U/L (0-41) H 02/26/24 19:25 Alkaline Phosphatase 81 U/L (40-130) 02/26/24 19:25 Total Protein 7.3 g/dL (6.6-8.7) 02/26/24 19:25 Albumin 4.7 g/dL (3.5-5.2) 02/26/24 19:25 Globulin 2.6 g/dL (1.3-4.6) 02/26/24 19:25 Coronavirus (PCR) Negative (Negative) 02/26/24 20:06 Influenza A (PCR) Negative (Negative) 02/26/24 20:06 Influenza Type B (PCR) Negative (Negative) 02/26/24 20:06 RSV (PCR) Negative (Negative) 02/26/24 20:06 All radiology interpretation(s) finalized by discharge Discharge Plan Discharge Patient Disposition: Home Clinical Impression: Viral illness Condition: Stable Prescriptions: New azithromycin [Zithromax Z-He] 250 mg tablet See Rx Instructions .ROUTE .COMPLEX Qty: 6 0RF Rx Instructions: For 250 mg dose pack: take 500 mg today (day 1), then 250 mg for 4 days (days 2-5) dexamethasone 6 mg tablet 6 mg PO DAILY 5 Days Qty: 5 0RF No Action acetaminophen-codeine 300-30 mg tablet 1 tab PO Q6H PRN (Reason: pain) Qty: 10 0RF Discharge Orders: Discharge ED (Routine); Ordered 02/26/24 Ordered By: Gaby Girard Discharge Diet: Usual diet Discharge Activity: Increase activity as tolerated Patient Instructions: Upper Respiratory Infection (ED), Opioid Safety, Pain Management Activity Restrictions/Additional Instructions: Thank you for choosing [facility] for your healthcare needs today. Please realize this is an emergency room and that we are providing you with a medical screening exam and this may not be complete and all inclusive of all the testing and or work up that you may need to determine your ailment or severity of your illness. You have been screened and evaluated and felt safe for discharge. Health conditions do change or evolve sometimes and as such it is important that you follow up with your Primary Doctor to be re checked, 3-5 days is a general good time frame for follow up. You are always welcome to return to the ED for re assessment if your symptoms are worsening or you have new concerns Coding Level of Care Code ED Run Boat Operator for Quan Herrera
[2024-02-26 19:31] LABS: Basophils # 0.1 10^3/uL (0.0-0.1); Eosinophils # 0.3 10^3/uL (0.0-0.8); Eosinophils % 3.5 %; Hematocrit 43.2 % (37-53); Lymphocytes % 20.7 %; Mean Corpuscular HGB Conc 36.1 g/dL (30-55); Mean Corpuscular Volume 88.7 fl (82-101); Mean Platelet Volume 9.1 fL (7.4-10.4); Monocytes # 0.8 10^3/uL (0.2-0.9); Neutrophils # 6.43 10^3/uL (1.8-7.7); Neutrophils % 66.5 %; Nucleated Red Blood Cells % 0 %; Platelet Count 365 10^3/cmm (157-399); Red Blood Count 4.87 10^6/uL (3.85-5.65); Red Cell Distribution Width 12.8 % (12.1-15.1); White Blood Count 9.69 10^3/uL (3.29-11.43)
[2024-02-26 19:48] LABS: Alanine Aminotransferase 82 U/L (0-41); Albumin Level 4.7 g/dL (3.5-5.2); Alkaline Phosphatase 81 U/L (40-130); Anion Gap 17.8 (5-19); Aspartate Amino Transferase 62 U/L (0-40); Blood Urea Nitrogen 13 mg/dL (6-20); Calcium 9.9 mg/dL (8.5-10.5); Carbon Dioxide 23 mmol/L (22-29); Chloride 96 mmol/L (98-107); Creatinine Clr Calc Pharmacy 182.2733; Globulin 2.6 g/dL (1.3-4.6); Glomerular Filtration Rate 159.3 mL/min (90-130); Glucose 86 mg/dL (65-115); Osmolality Calculated 275 mOsm/kg (285-295); Potassium 3.8 mmol/L (3.5-5.1); Sodium 133 mmol/L (136-145); Total Bilirubin 0.5 mg/dL (0.15-1.2); Total Protein 7.3 g/dL (6.6-8.7)
[2024-02-26] MEDS: ketorolac 30 mg/mL INJ IVP (20:00)
[2024-02-26 20:48] LABS: Covid PCR NEGATIVE (Negative); Influenza A NEGATIVE (Negative); Influenza B NEGATIVE (Negative); Respiratory Syncytial Virus Ce NEGATIVE (Negative)
== END 2024-02-26 21:55 | disposition home or self-care (01) ==
PROVIDERS: Emergency Provider Emergency Medicine
DX: B34.9 Viral infection, unspecified (principal); Z11.52 Encounter for screening for COVID-19; F17.210 Nicotine dependence, cigarettes, uncomplicated
CPT/HCPCS: 0241U; 36415; 71045; 80053; 85025; 93005; 96374; 99285; J1885

== ENCOUNTER 2024-06-15 03:06 | Emergency (ER) | payer SELFPAY ==
[2024-06-15 03:58] VITALS: BP 121/69; PULSE 78; RESP 18; TEMP 36.5; O2SAT 97; BMI 29.8
--- NOTE | 2024-06-15 05:20 | W.ED.HA ---
HPI - Headache General: Chief Complaint: Headache Stated Complaint: dizzy head exploding n/v/d Time Seen by Provider: 06/15/24 04:25 History of Present Illness: Patient presents with acute onset vertigo that began around 1:00 AM today. Reports significant dizziness, particularly when closing eyes, with sensation of spinning. Symptoms are somewhat improved when standing. Associated symptoms include headache radiating from lower face upward and episodes of vomiting upon waking. Patient denies fever. Reports mild ear pain on one side with sensation of fullness. Denies prior history of vertigo. Patient has poor dentition but denies acute tooth pain or localized dental infection symptoms. Current smoker with approximately 1 pack per day tobacco use. Related Data Previous Rx's ?Medication ?Instructions ?Recorded acetaminophen 300 mg-codeine 30 mg 1 tab PO Q6H PRN pain #10 tabs 05/01/23 tablet azithromycin 250 mg tablet See Rx Instructions PO .COMPLEX #6 02/26/24 (Zithromax Z-He) tabs meclizine 25 mg tablet 25 mg PO TID #14 tabs 06/15/24 Allergies Allergy/AdvReac Type Severity Reaction Status Date / Time tramadol Allergy ADR-Itching Verified 02/26/24 19:08 [facility] ED PFSH: Medical History GERD (gastroesophageal reflux disease) Nausea vomiting and diarrhea Acute viral disease Tension headache No significant past medical history Surgical History No significant past surgical history Family History Father Cancer stomach Family/Other Cancer 2 Paternal aunts--unknown Other Diabetes Hyperlipidemia Hypertension Lung disease Stroke Denies family history of CAD (coronary artery disease) Clotting disorder Dementia Psychiatric illness Chronic kidney disease (CKD) Anesthesia complication Bleeding disorder Social History Smoking and tobacco/nicotine status: current every day tobacco/nicotine user cigarettes [ Other cigarette details: 3/4PPD, 2PPD x 15yrs, 30PY] Alcohol intake: current Alcohol intake frequency: 3 or more drinks per day Alcohol type: hard liquor Substance/Drug Use: current Substance/Drug use frequency: daily Other substance/drug use details: smoking dabs (wax) Lives independently: Yes Marital status: Number of children: 2 Current occupational status: employed Current occupation: [employer] Current gender identity: Male Special avril needs: No Agree to transfusion: Yes Physical Exam Const: COMMON NORMALS: no acute distress, patient oriented x3, alert and well nourished HENMT: COMMON NORMALS: normocephalic HEAD & SCALP: normocephalic Eye: COMMON NORMALS: Equal, round and reactive pupils present, EOMs intact bilaterally and conjunctivae normal CONJUNCTIVA: Yes conjunctivae normal PUPIL: Yes Equal, round and reactive pupils present Neck/C-Spine: COMMON NORMALS: full ROM, no lymphadenopathy, supple, no meningeal signs, no JVD and Thyroid normal THYROID: Thyroid normal Chest: COMMONS NORMALS: normal inspection of the chest and normal palpation of entire chest wall Resp: COMMON NORMALS: normal respiratory effort, No retractions, No use of accessory muscles, clear to auscultation bilaterally and percussion normal AUSCULTATION: clear to auscultation bilaterally PERCUSSION: percussion normal Cardio: COMMON NORMALS: no JVD GI: COMMON NORMALS: Normal to inspection, nondistended, normoactive bowel sounds present, Soft to palpation, non-tender, No hepatosplenomegaly present, no masses and no bruits PALPATION: Yes Soft to palpation and Yes No hepatosplenomegaly present : COMMON NORMALS: Yes no CVA tenderness BLADDER/KIDNEY EXAM: Yes no CVA tenderness Back/Pelvis: COMMON NORMALS: no CVA tenderness Extremity: COMMON NORMALS: normal to inspection, full ROM, capillary refill normal, no joint enlargement, no clubbing, cyanosis or edema, no calf tenderness and no pedal edema Neuro: COMMON NORMALS: patient oriented x3 SENSORIUM/ORIENTATION: Yes alert MENINGEAL SIGNS: Yes no meningeal signs Skin: COMMON NORMALS: no rashes or lesions noted, turgor normal and no jaundice GENERAL SKIN EXAM: no rashes or lesions noted and turgor normal Course Vital Signs: Vital signs: Vital Signs Temperature 97.7 F 06/15/24 03:58 Pulse Rate 78 06/15/24 03:58 Respiratory Rate 18 06/15/24 03:58 Blood Pressure 121/69 06/15/24 03:58 Pulse Oximetry 97 06/15/24 03:58 Oxygen Delivery Me thod Room Air 03/16/25 03:58 MDM - Headache Medical Decision Making 1. Acute Vertigo, likely viral in etiology: - Prescribe antivertigo medication with sedating properties - Patient advised about drowsiness as medication side effect - Provided patient education regarding vertigo 2. Poor Dental Health: - Recommended dental follow-up for evaluation and management of poor dentition - Not the acute cause of current symptoms 3. Tobacco Use Disorder: - Advised smoking cessation - Currently smoking 1 pack per day Follow-up as needed if symptoms worsen or fail to improve with prescribed treatment. Patient advised not to drive while experiencing vertigo or while taking prescribed medication. Patient does not have any significant red flag signs or symptoms his exam is largely unremarkable this is likely viral in nature I do not think he has a serious issue of his symptoms tonight. He flexes his neck easily is not febrile patient's not vomiting and appears comfortable. No radiology studies performed this visit Discharge Plan Discharge Patient Disposition: Home Condition: Stable Prescriptions: New meclizine 25 mg tablet 25 mg PO TID Qty: 14 0RF No Action acetaminophen-codeine 300-30 mg tablet 1 tab PO Q6H PRN (Reason: pain) Qty: 10 0RF azithromycin [Zithromax Z-He] 250 mg tablet See Rx Instructions .ROUTE .COMPLEX Qty: 6 0RF Rx Instructions: For 250 mg dose pack: take 500 mg today (day 1), then 250 mg for 4 days (days 2-5) Discharge Orders: Discharge ED (Routine); Ordered 06/15/24 Ordered By: Vahid Douglas Discharge Diet: Usual diet Discharge Activity: Limit activity as instructed Patient Instructions: Opioid Safety, Pain Management Activity Restrictions/Additional Instructions: 1. Rest, fluids and take meclizine as directed. 2. Follow up with PCP for recheck. Return for new or worsening symptoms. Print Language: Swedish Coding Level of Care Code ED Sales Planning Coordinator for Quan Herrera
[2024-06-15] MEDS: diazePAM 5 mg Tablet PO (05:41)
[2024-06-15 05:42] VITALS: BP 115/64; PULSE 73; RESP 16; O2SAT 97
[2024-06-15 05:48] VITALS: BP 115/64; PULSE 63; RESP 16; O2SAT 96
== END 2024-06-15 05:50 | disposition home or self-care (01) ==
PROVIDERS: Emergency Provider Family Medicine
DX: R42 Dizziness and giddiness (principal); K08.89 Other specified disorders of teeth and supporting structures; F17.210 Nicotine dependence, cigarettes, uncomplicated
CPT/HCPCS: 99283; J9999

== ENCOUNTER 2024-09-16 20:21 | Emergency (ER) | payer SELFPAY ==
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
[2024-09-16 20:33] VITALS: BP 108/68; PULSE 91; RESP 16; TEMP 37; O2SAT 95
--- NOTE | 2024-09-16 23:05 | ED_ITS ---
HPI - Back Pain/Injury General: Chief Complaint: Back Pain/Injury Stated Complaint: R side rib pain Time Seen by Provider: 09/16/24 22:49 Source: patient Mode of arrival: ambulatory Limitations: no limitations History of Present Illness: 29yo male presents with right lateral ri b pain that has been ongoing for the past couple days. States that he was playing in the yard with the kids and his nephew jumped on him. Reports that it had been hurting some, but he had significant increase in pain tonight when he coughed while he was smoking. Patient denies difficulty breathing, shortness of breath, chest pain, any other concern at this time. Associated symptoms: Deny chills or fever(s) Related Data Previous Rx's ?Medication ?Instructions ?Recorded cyclobenzaprine 5 mg tablet 5 mg PO TID PRN muscle spa sm #20 09/16/24 tabs ketorolac 10 mg tablet 10 mg PO Q6H PRN pain 5 days #20 09/16/24 tabs Allergies Allergy/AdvReac Type Severity Reaction Status Date / Time tramadol Allergy ADR-Itching Verified 02/26/24 19:08 Review of Systems Const: Denies: fever(s) or chills Card: Denies: chest pain Resp: Reports: pain on inspiration; Denies: dyspnea PFSH ED PFSH: Medical History GERD (gastroesophageal reflux disease) Nausea vomiting and diarrhea Acute viral disease Tension headache No significant past medical history Surgical History No significant past surgical history Family History Father Cancer stomach Family/Other Cancer 2 Paternal aunts--unknown Other Diabetes Hyperlipidemia Hypertension Lung disease Stroke Denies family history of CAD (coronary artery disease) Clotting disorder Dementia Psychiatric illness Chronic kidney disease (CKD) Anesthesia complication Bleeding disorder Social History Smoking and tobacco/nicotine status: current every day tobacco/nicotine user cigarettes [ Other cigarette details: 3/4PPD, 2PPD x 15yrs, 30PY] Alcohol intake: current Alcohol intake frequency: 3 or more drinks per day Alcohol type: hard liquor Substance/Drug Use: current Substance/Drug use frequency: daily Other substance/drug use details: smoking dabs (wax) Lives independently: Yes Marital status: Number of children: 2 Current occupational status: employed Current occupation: [employer] Current gender identity: Male Special avril needs: No Agree to transfusion: Yes Physical Exam Const: COMMON NORMALS: no acute distress, patient oriented x3 and healthy appearing GENERAL APPEARANCE: cooperative ORIENTATION/CONSCIOUSNESS: Yes awake OTHER: Patient is ambulatory to vertical flow recliner unassisted. He is sitting upright in the recliner in no acute distress. He is able to give history with no difficulty. He is interactive with exam appropriately. No family is at bedside at time of exam HENMT: COMMON NORMALS: normocephalic and atraumatic HEAD & SCALP: normocephalic and atraumatic Neck/C-Spine: COMMON NORMALS: full ROM Chest: CHEST: Yes Symmetrical chest wall rise and Yes tenderness rib (right axillary area) Resp: COMMON NORMALS: normal respiratory effort and clear to auscultation bilaterally EFFORT & INSPECTION: Yes able to speak in complete sentences AUSCULTATION: clear to auscultation bilaterally Extremity: COMMON NORMALS: full ROM Neuro: COMMON NORMALS: patient oriented x3 Course Vital Signs: Vital signs: Vital Signs Temperature 98.6 F 09/16/24 20:33 Pulse Rate 91 09/16/24 20:33 Respiratory Rate 16 09/16/24 20:33 Blood Pressure 108/68 09/16/24 20:33 Pulse Oximetry 95 09/16/24 20:33 Oxygen Delivery Me thod Room Air 09/16/24 20:33 MDM - Back Pain/Injury Medical Decision Making 29yo male presents with right lateral rib pain that has been ongoing for the past couple days. States that he was playing in the yard with the kids and his nephew jumped on him. Reports that it had been hurting some, but he had significant increase in pain tonight when he coughed while he was smoking. Patient denies difficulty breathing, shortness of breath, chest pain, any other concern at this time. X-ray obtained while awaiting room placement. No fracture, pneumothorax, or acute abnormality noted. Discussed findings with patient. Advised possibility of rib contusion. Patient did receive ketorolac in cyclobenzaprine while in the emergency department and prescriptions of each were sent to patient's pharmacy. Sedation precautions provided for cyclobenzaprine. Recommend follow-up with primary care in about a week for recheck, sooner if needed. Return precautions provided. Patient states understanding and has no further questions or concerns at this time. Medical Records I reviewed the patient's medical records. Labs Radiology Impressions Ribs X-Ray 09/16/24 20:23 IMPRESSION: No acute findings. All radiology interpretation(s) finalized by discharge Discharge Plan Discharge Patient Disposition: Home Clinical Impression: Rib pain on right side Condition: Stable Prescriptions: New ketorolac 10 mg tablet 10 mg PO Q6H PRN (Reason: pain) 5 Days Qty: 20 0RF cyclobenzaprine 5 mg tablet 5 mg PO TID PRN (Reason: muscle spasm) Qty: 20 0RF Discontinued acetaminophen-codeine 300-30 mg tablet 1 tab PO Q6H PRN (Reason: pain) Qty: 10 0RF azithromycin [Zithromax Z-He] 250 mg tablet See Rx Instructions .ROUTE .COMPLEX Qty: 6 0RF Rx Instructions: For 250 mg dose pack: take 500 mg today (day 1), then 250 mg for 4 days (days 2-5) meclizine 25 mg tablet 25 mg PO TID Qty: 14 0RF Discharge Orders: Discharge ED (Routine); Ordered 09/16/24 Ordered By: Maximiliano Coon Discharge Diet: Usual diet Discharge Activity: Increase activity as tolerated Patient Instructions: Rib Contusion (ED), Pain Management Activity Restrictions/Additional Instructions: No fractures or acute abnormalities noted on the x-ray today The injury is potentially a contusion of the ribs Prescription of ketorolac and cyclobenzaprine has been sent to the pharmacy. Please do not take ibuprofen or naproxen while taking ketorolac. Please do not drive or operate heavy machinery while taking cyclobenzaprine. 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
[2024-09-16] MEDS: cyclobenzaprine 10 mg Tablet 5 MG PO (23:15)
[2024-09-16] MEDS: ketorolac 30 mg/mL INJ IM (23:15)
== END 2024-09-16 23:20 | disposition home or self-care (01) ==
PROVIDERS: Emergency Provider Nurse Practitioner
DX: R07.81 Pleurodynia (principal); F17.210 Nicotine dependence, cigarettes, uncomplicated
CPT/HCPCS: 71101; 96372; 99284; J1885; J9999